=== PATIENT | female | born 1960 ===

== ENCOUNTER 2020-08-27 09:21 | Outpatient (REF) | payer BC, SELFPAY ==
[2020-08-27 11:41] LABS: Anion Gap 14 (12-20); Blood Urea Nitrogen 12 mg/dL (9-16); Calcium 9.1 mg/dL (8.4-10.2); Carbon Dioxide 24 mmol/L (22-29); Chloride 105 mmol/L (96-108); Cholesterol 201 mg/dL; Estimated Glomerular Filt Rate > 60; Glucose Fasting 93 mg/dL (60-99); HDL Cholesterol 40 mg/dL; LDL Cholesterol Calculated 120 mg/dl; Potassium 4.2 mmol/L (3.3-5.1); Sodium 139 mmol/L (135-145); Triglycerides 207 mg/dL
[2020-08-27 12:08] LABS: Free T4 (Free Thyroxine) 1.01 ng/dL (0.71-1.85); Thyroid Stimulating Hormone 5.99 uIU/mL (0.32-4.0); Vitamin D 25-OH Total 25.1 ng/mL (>30)
== END 2020-08-27 09:22 | disposition home or self-care (01) ==
LOC: HO.HMGCLDS 09:21
PROVIDERS: PCP Internal Medicine; Visit Provider Internal Medicine
DX: I10 Essential (primary) hypertension (principal); E03.9 Hypothyroidism, unspecified; J45.20 Mild intermittent asthma, uncomplicated; M17.10 Unilateral primary osteoarthritis, unspecified knee; J30.9 Allergic rhinitis, unspecified
CPT/HCPCS: 36415; 80048; 80061; 82306; 84439; 84443

== ENCOUNTER 2020-12-17 09:33 | Outpatient (REF) | payer BC, SELFPAY ==
[2020-12-17 12:10] LABS: Vitamin D 25-OH Total 53.1 ng/mL (>30)
== END 2020-12-17 09:34 | disposition home or self-care (01) ==
LOC: HO.HMGCLDS 09:33
PROVIDERS: PCP Internal Medicine; Visit Provider Internal Medicine
DX: Z00.01 Encounter for general adult medical examination with abnormal findings (principal); E55.9 Vitamin D deficiency, unspecified; Z78.0 Asymptomatic menopausal state
CPT/HCPCS: 36415; 82306

== ENCOUNTER 2021-05-09 09:50 | Outpatient (REF) | payer BC, SELFPAY ==
[2021-05-09 12:16] LABS: Thyroid Stimulating Hormone 6.15 uIU/mL (0.32-4.0)
== END 2021-05-09 09:51 | disposition home or self-care (01) ==
LOC: HO.HMGCLDS 09:50
PROVIDERS: PCP Internal Medicine; Visit Provider Internal Medicine
DX: E03.9 Hypothyroidism, unspecified (principal); Z78.0 Asymptomatic menopausal state
CPT/HCPCS: 36415; 82306; 84439; 84443

== ENCOUNTER 2021-09-23 10:48 | Outpatient (REF) | payer BC, SELFPAY ==
[2021-09-23 14:24] LABS: Free T4 (Free Thyroxine) 0.97 ng/dL (0.71-1.85); Thyroid Stimulating Hormone 3.91 uIU/mL (0.32-4.0); Vitamin D 25-OH Total 61.9 ng/mL (>30)
== END 2021-09-23 10:49 | disposition home or self-care (01) ==
LOC: HO.HMGCLDS 10:48
PROVIDERS: Visit Provider Internal Medicine
DX: E55.9 Vitamin D deficiency, unspecified (principal); E03.9 Hypothyroidism, unspecified; Z78.0 Asymptomatic menopausal state
CPT/HCPCS: 36415; 82306; 84439; 84443

== ENCOUNTER 2021-10-20 13:50 | Outpatient (REF) | payer BC, SELFPAY ==
--- NOTE | ~2021-10-20 | MM_ITS ---
EXAMINATION: MM SCREENING DIGITAL BREAST TOMOSYNTHESIS, BILATERAL CLINICAL INFORMATION: Screening. Asymptomatic. The lifetime risk of breast cancer based on the Tyrer-Cuzick Model is 6%. COMPARISON: Outside mammography 06/03/2019, 05/22/2019 ([facility]). TECHNIQUE: Digital mammography is performed in craniocaudal and mediolateral oblique views along with computer-aided detection (CAD). Digital breast tomosynthesis is performed in implant-displaced craniocaudal and implant-displaced mediolateral oblique views along with computer-aided detection (CAD). Synthesized 2D images are generated from the tomosynthesis. Additional left implant displaced MLO view is provided. FINDINGS: There are scattered areas of fibroglandular density (ACR BI-RADS breast composition Category b). Bilateral implants contours are smooth and similar to outside exam. There are no significant masses, abnormal calcifications, or other abnormalities. No architectural abnormality. The axilla consistent contours are unremarkable. No significant changes. MM/MM tomosynthesis screen imp BI IMPRESSION: No mammographic evidence of malignancy. ASSESSMENT: BI-RADS 1: Negative RECOMMENDATION: Routine annual mammography screening. This patient's information was entered into a reminder system with a target due date for their next mammogram.
== END 2021-10-20 13:51 | disposition home or self-care (01) ==
LOC: HO.MAMMO 13:50
PROVIDERS: Visit Provider Internal Medicine
DX: Z12.31 Encounter for screening mammogram for malignant neoplasm of breast (principal)
CPT/HCPCS: 77063; 77067

== ENCOUNTER 2022-01-05 08:43 | Outpatient (REF) | payer BC, SELFPAY ==
[2022-01-05 12:26] LABS: Alanine Aminotransferase 18 U/L (0-31); Anion Gap 12 (12-20); Aspartate Amino Transferase 21 U/L (5-31); Blood Urea Nitrogen 17 mg/dL (9-16); Calcium 9.1 mg/dL (8.4-10.2); Carbon Dioxide 21 mmol/L (22-29); Chloride 110 mmol/L (96-108); Cholesterol 202 mg/dL; Estimated Glomerular Filt Rate > 60; Glucose Fasting 109 mg/dL (60-99); HDL Cholesterol 42 mg/dL; LDL Cholesterol Calculated 126 mg/dl; Potassium 4.5 mmol/L (3.3-5.1); Sodium 138 mmol/L (135-145); Triglycerides 173 mg/dL
[2022-01-05 12:28] LABS: Free T4 (Free Thyroxine) 1.05 ng/dL (0.71-1.85); Thyroid Stimulating Hormone 3.52 uIU/mL (0.32-4.0)
== END 2022-01-05 08:44 | disposition home or self-care (01) ==
LOC: HO.HMGCLDS 08:43
PROVIDERS: Visit Provider Internal Medicine
DX: Z00.01 Encounter for general adult medical examination with abnormal findings (principal); E03.9 Hypothyroidism, unspecified; E66.9 Obesity, unspecified; Z78.0 Asymptomatic menopausal state
CPT/HCPCS: 36415; 80048; 80061; 84439; 84443; 84450; 84460

== ENCOUNTER 2022-03-27 14:52 | Outpatient (REF) | payer BC, SELFPAY ==
--- NOTE | ~2022-03-27 | XR_ITS ---
EXAMINATION: XR CHEST CLINICAL INFORMATION: S20.219A - Contusion of unspecified front wall of thorax, initial encounter COMPARISON: None TECHNIQUE: 2 views of the chest were obtained. FINDINGS: The lungs are clear. There is no airspace consolidation, pleural reaction, pneumothorax, or effusion. The costophrenic sulci are clear. The heart is normal in size. The hilar and mediastinal contours are normal. No visible acute bony abnormality. XR/XR chest 2V IMPRESSION: Unremarkable examination.
== END 2022-03-27 14:53 | disposition home or self-care (01) ==
LOC: HO.HMGCX 14:52
PROVIDERS: PCP Internal Medicine; Visit Provider Internal Medicine
DX: S20.219A Contusion of unspecified front wall of thorax, initial encounter (principal)
CPT/HCPCS: 71046

== ENCOUNTER 2022-05-29 14:49 | Emergency (ER) | payer OTHER, SELFPAY ==
[2022-05-29] MEDS: Albuterol Sulfate 2.5 MG, Albuterol Sulfate (0.083%) 2.5 MG 5 MG INHALE (14:56)
[2022-05-29 14:57] VITALS: PULSE 89; RESP 22; O2SAT 97
[2022-05-29 15:06] VITALS: BP 164/87; PULSE 82; RESP 18; TEMP 37.1; O2SAT 81; BMI 32.2
[2022-05-29] MEDS: LORazepam 1 MG TABLET 2 MG PO (15:08)
--- NOTE | 2022-05-29 15:20 | ED_ITS ---
HPI - General Adult General Chief complaint: General Medical Stated complaint: stuck in elevator Time Seen by Provider: 05/29/22 14:50 Source: patient Mode of arrival: wheelchair Limitations: no limitations History of Present Illness HPI narrative: 61 yo female with history of asthma here with complaints of diff breathing/anxiety after being stuck in an elevator. No cough, fever, chest pain. Related Data Allergies Allergy/AdvReac Type Severity Reaction Status Date / Time Unable to Assess Allergy Verified 05/29/22 14:50 Review of Systems Review of Systems: Yes all other systems are reviewed and are negative Constitutional: Constitutional: Reports no additional constitutional complaints, Denies body ache(s), Denies chills, Denies fever(s), Denies headache(s) and Denies weakness Eyes: Eyes: Reports no additional eye complaints and Denies change in vision ENT: Reports system reviewed and no additional complaints, except as doc umented, Denies dizziness, Denies headache(s), Denies nasal congestion, Denies nasal discharge and Denies neck pain Cardiovascular: Cardiovascular: Reports no additional cardiovascular complaints, Denies chest pain, Denies leg edema and Reports dyspnea Respiratory: Respiratory: Reports no additional respiratory complaints, Denies cough and Reports dyspnea Gastrointestinal: Gastrointestinal: Reports no additional gastrointestinal complaints, Denies abdominal pain, Denies diarrhea, Denies nausea and Denies vomiting Genitourinary: Genitourinary: Reports no additional female genitourinary complaints and Denies urinary incontinence Musculoskeletal: Musculoskeletal: Reports no additional musculoskeletal complaints, Denies back pain, Denies arthralgias, Denies joint swelling, Denies neck pain, Denies numbness and Denies tingling Integumentary/Breasts: Skin/Breast: Reports system reviewed and no additional complaints, except as docu and Denies rash Neurologic: Reports system reviewed and no additional complaints, except as documented, Denies dizziness, Denies headache(s), Denies numbness, Denies tingling and Denies weakness Psychiatric: Psychiatric: Reports anxiety PMFSH Past Medical History Attestation statement: The following information was validated with the patient. Source: old records reviewed and nursing notes reviewed Social History Social History Advance Directives: No Advance Directives Information Provided: No Physical Exam ED Vital Signs: Vital Signs - 24 hr 05/29/22 14:57 05/29/22 15:06 Temperature 98.8 F Pulse Rate 89 82 Respiratory Rate 22 H 18 Blood Pressure 164/87 H Pulse Oximetry 81 L Oxygen Delivery Method Room Air BMI result Body Mass Index 32.2 Const General: alert and anxious Orientation/consciousness: patient oriented x3 Limitations: no limitations HENMT Head: Yes normal to inspection Ears: hearing grossly normal bilaterally Eyes General: appearance normal, both eyes and all related structures Pupils: Equal, round and reactive pupils present Neck Neck: Yes normal visual inspection, Yes full ROM, Yes no lymphadenopathy and Yes no meningeal signs Chest Chest palpation & inspection: normal inspection of the chest Resp Other: mild tachypnea Auscultation: clear to auscultation bilaterally Cardio Rate: regular rate Rhythm: regular rhythm Peripheral pulses: Peripheral pulses 2+ throughout GI Inspection: Yes normal to inspection Palpation (GI): Soft to palpation and nontender General: Yes no CVA tenderness Back/Spine/Pelvis Back: no CVA tenderness Thoracic/Lumbar Spine: thoracic and lumbar spine normal to inspection Skin General skin exam: no rashes or lesions noted Neuro General: patient oriented x3, moves all extremities and no meningeal signs Cranial nerves: Yes Equal, round and reactive pupils present Cognition (Neuro): normal cognition Gait exam (Neuro): Normal gait present Extrem General: Yes normal to inspection, Yes no pedal edema and Yes no calf tenderness Course Course Course Narrative: 1615-patient feels much improved. Likely panic attack. Patient will be discharged home. Reviewed worrisome signs and symptoms of when to return to the emergency room. Comfortable plan for discharge home. Medications Administered Discontinued Medications Generic Name Dose Route Start Last Admin Trade Name Isa PRN Reason Stop Dose Admin Albuterol Sulfate 2.5 mg/ 5 mg 05/29/22 14:50 05/29/22 14:56 Albuterol Sulfate 2.5 mg INHALE 05/29/22 14:51 5 mg ONCE ONE Administration Lorazepam 2 mg 05/29/22 14:54 05/29/22 15:08 Lorazepam 1 Mg Tablet PO 05/29/22 14:55 2 mg ONCE ONE Administration Medical Decision Making MDM Narrative Medical decision making narrative: 61 yo female here with difficulty breathing describes shortness of breath with anxiety after being 2nd elevator. On arrival vitals are stable. Lungs are clear. Patient has mild tachypnea. She is quite anxious. Will give albuterol nebulizer, p.o. Ativan and reassess Medical Records Medical records reviewed: Yes I reviewed the patient's medical records. Lab Data Lab results reviewed: Yes I reviewed the patient's lab results. Discharge Plan Discharge Clinical Impression: Panic attack Patient Disposition: Home, Self-Care Instructions: Panic Attack (ED) Referrals: Trung Woods MD [Primary Care Provider] - 5 days Interventions: ED Discharge Assessment Last Done: 05/29/22 16:38 Discharge Date/Time: 05/29/22 16:38
== END 2022-05-29 16:38 | disposition home or self-care (01) ==
PROVIDERS: Emergency Provider Emergency Medicine; PCP Internal Medicine
DX: F41.0 Panic disorder [episodic paroxysmal anxiety] (principal)
CPT/HCPCS: 94640; 99283; 99284

== ENCOUNTER 2022-06-29 13:32 | Outpatient (REF) | payer BC, SELFPAY ==
--- NOTE | ~2022-06-29 | XR_ITS ---
EXAMINATION: XR FOOT, LEFT CLINICAL INFORMATION: Left foot pain. COMPARISON: None TECHNIQUE: AP, lateral, and oblique views of the left foot. FINDINGS: There is acute, minimally displaced oblique fracture of the diaphysis of the proximal phalanx of the fourth digit. The remainder the digits are intact. The tarsal bones are normally aligned. The soft tissues are unremarkable. XR/XR foot LT min 3V IMPRESSION: Acute, minimally displaced fracture of the proximal phalanx of the fourth digit with mild soft tissue swelling.
== END 2022-06-29 13:33 | disposition home or self-care (01) ==
LOC: HO.HMGCX 13:32
PROVIDERS: PCP Internal Medicine; Visit Provider Physician Assistant
DX: M79.675 Pain in left toe(s) (principal)
CPT/HCPCS: 73630

== ENCOUNTER 2022-07-17 16:20 | Outpatient (REF) | payer OTHER, BC, SELFPAY ==
--- NOTE | ~2022-07-17 | XR_ITS ---
EXAMINATION: XR FOOT, LEFT CLINICAL INFORMATION: Pain. COMPARISON: None TECHNIQUE: AP, lateral, and oblique views of the left foot. FINDINGS: The bones and soft tissues are normal. No fracture. Alignment is anatomic. Joint spaces are maintained. XR/XR foot LT min 3V IMPRESSION: Unremarkable left foot exam.
== END 2022-07-17 16:21 | disposition home or self-care (01) ==
LOC: HO.HOSX 16:20
PROVIDERS: Visit Provider Physician Assistant
DX: S92.302A Fracture of unspecified metatarsal bone(s), left foot, initial encounter for closed fracture (principal)
CPT/HCPCS: 73630

== ENCOUNTER 2022-09-29 10:43 | Outpatient (REF) | payer OTHER, SELFPAY ==
[2022-09-29 16:27] LABS: Alanine Aminotransferase 18 U/L (0-31); Anion Gap 13 (12-20); Aspartate Amino Transferase 22 U/L (5-31); Blood Urea Nitrogen 13 mg/dL (9-16); Calcium 8.7 mg/dL (8.4-10.2); Carbon Dioxide 23 mmol/L (22-29); Chloride 108 mmol/L (96-108); Cholesterol 199 mg/dL; Estimated Glomerular Filt Rate > 60; Glucose Fasting 92 mg/dL (60-99); HDL Cholesterol 36 mg/dL; LDL Cholesterol Calculated 120 mg/dl; Potassium 4.2 mmol/L (3.3-5.1); Sodium 140 mmol/L (135-145); Triglycerides 216 mg/dL
[2022-09-29 16:42] LABS: Free T4 (Free Thyroxine) 1.04 ng/dL (0.71-1.85); Thyroid Stimulating Hormone 2.88 uIU/mL (0.32-4.0)
[2022-09-29 17:24] LABS: Vitamin D 25-OH Total 33.7 ng/mL (>30)
== END 2022-09-29 10:44 | disposition home or self-care (01) ==
LOC: HO.HMGCLDS 10:43
PROVIDERS: PCP Internal Medicine; Visit Provider Internal Medicine
DX: Z00.01 Encounter for general adult medical examination with abnormal findings (principal); E03.9 Hypothyroidism, unspecified; E55.9 Vitamin D deficiency, unspecified; E66.9 Obesity, unspecified; Z78.0 Asymptomatic menopausal state
CPT/HCPCS: 36415; 80048; 80061; 82306; 84439; 84443; 84450; 84460

== ENCOUNTER → 2022-10-05 09:19 | Outpatient (BNVA) | payer OTHER, SELFPAY | PROVIDERS: PCP Internal Medicine; Referring Provider Internal Medicine; Visit Provider Surgery | DX: Z13.89 Encounter for screening for other disorder (principal) ==

== ENCOUNTER 2022-10-13 06:58 | Day surgery (SDC) | payer OTHER, SELFPAY ==
[2022-10-13] VITALS (7 sets, daily range): BP systolic 96–129; BP diastolic 56–82; PULSE 59–74; RESP 16–20; TEMP 36.5–36.7; O2SAT 94–96; BMI 31.1
--- NOTE | 2022-10-13 05:59 | MHC.SHP ---
Pre-Procedural Eval Section A Date of Service: 10/13/22 The patient is an INPATIENT: No Changes since office visit: No Cold of Flu in the past 2 weeks, No New Medical Problems, No Changes in Medication and No Patient answered all questions Section B Chief Complaint: Benign lipomatous neoplasm, unspecified Allergies: Allergies Allergy/AdvReac Type Severity Reaction Status Date / Time acetaminophen [From Percocet] Allergy Rash Verified 10/05/22 09:27 meperidine [From Demerol] Allergy Rash Verified 10/05/22 09:27 oxycodone [From Percocet] Allergy Rash Verified 10/05/22 09:27 Penicillins Allergy Anaphylaxis Verified 10/05/22 09:27 ibuprofen AdvReac face Verified 10/05/22 09:27 swollen Plan I have reviewed the history and physical and performed a pertinent physical examination on my patient. No changes have occurred unless specified. Time Spent With Patient Time: Total time managing care of this patient today ____ minutes.
--- NOTE | 2022-10-13 08:37 | HO.ANESPROP2 ---
[facility] Active Problems Active Problems: All Active Problems (Updated 07/17/22 @ 10:28 by Jim Varner) Lipoma (Acute) Fracture of metatarsal of left foot, closed (Acute) Contusion, chest wall (Acute) COVID-19 vaccine series declined (Acute) Tear of medial meniscus of left knee (Acute) Encounter for general adult medical examination with abnormal findings (Acute) Menopause (Acute) Vitamin D deficiency (Acute) Obesity (BMI 30.0-34.9) (Acute) Normal colonoscopy (Acute) Allergic rhinitis (Acute) Mild intermittent allergic asthma without complication (Acute) Osteoarthritis, knee (Acute) Acquired hypothyroidism (Acute) Past Medical History Medical History Acquired hypothyroidism Allergic rhinitis COVID-19 vaccine series declined Encounter for general adult medical examination with abnormal findings Menopause Mild intermittent allergic asthma without complication Normal colonoscopy Obesity (BMI 30.0-34.9) Osteoarthritis, knee Tear of medial meniscus of left knee Vitamin D deficiency Family History Family History Father Diabetes Hypertension Mother Diabetes Hypertension Mental health disorder Brother Diabetes Brother Diabetes Brother Diabetes Sister Diabetes Family history of problems with anesthesia: No Surgical History Surgical History H/O abdominoplasty H/O bilateral breast implants History of surgical removal of meniscus of knee History of Problems with Anesthesia: No Social History Social History Housing: House Alcohol intake: never Patient Tobacco Use Status: Never used Tobacco e-Cigarette/Vaping Use: Never Used Use of substances other than those prescribed or required for medical reasons: No Are you DNR?: No Advance Directives: No Advance Directives Information Provided: Yes service: No Current occupational status: unemployed Cognitive needs: No Hearing needs: No Vision needs: Yes Meds Allergies Allergy/AdvReac Type Severity Reaction Status Date / Time acetaminophen [From Percocet] Allergy Rash Verified 10/05/22 09:27 meperidine [From Demerol] Allergy Rash Verified 10/05/22 09:27 oxycodone [From Percocet] Allergy Rash Verified 10/05/22 09:27 Penicillins Allergy Anaphylaxis Verified 10/05/22 09:27 ibuprofen AdvReac face Verified 10/05/22 09:27 swollen Home Medications Medication Instructions Recorded Confirmed Last Taken Type cholecalciferol (vitamin D3) 25 25 mcg PO DAILY 03/27/22 Unknown History mcg (1,000 unit) capsule Exam Exam Date and Time: October 13, 2022 0837 Height,Weight and Vital Signs: Height 5 ft 1 in Weight 74.843 kg Last Vital Signs Temp 98.0 F 10/13/22 07:16 Pulse 62 10/13/22 07:16 Resp 16 10/13/22 07:16 BP 129/82 10/13/22 07:16 Pulse Ox 96 10/13/22 07:16 O2 Del Method Room Air 10/13/22 07:16 Airway Mallampati Class: II TM Dist: >3cm Neck ROM: Full Assessment and Plan Assessment Anesthesia Assessment: Anesthesia Plan Discussed and Chart Reviewed Final Anesthetic Review Family History of Problems with Anesthesia: No History of Problems with Anesthesia: No NPO: Yes ASA Class: II Final Preanesthetic Review: No Changes in Pt Med Stat, Meds/Allgs Chart Reviewed, Consent Obtained/Reviewed and Anes Risks/Benef Reviewed Patient Risk: Low Procedure Risk: Low Anesthetic Plan Anesthetic Plan: GA Disposition: Standard PACU
--- NOTE | 2022-10-13 09:11 | W.PM.OPN ---
Operative Note Operative Note Date of Service: 10/13/22 Narrative: Preoperative diagnosis: [] large left posterior neck lipoma Postop diagnosis: [] same Procedure [] excision left posterior neck lipoma Surgeon: Axel Sultana Sales Recruiting Coordinator: [] Zia wu Type of Anesthesia: [] MAC Indication for surgery: [] symptomatic enlarging left posterior neck lipoma Findings: [] final specimen measured approximately 7 x 5 cm consistent with a large lipoma The patient was brought to the operating room, placed on the operating table in the supine position, and after an adequate level of MAC anesthesia was induced, patient was placed in right lateral decubitus position. Left posterior neck was prepped and draped in usual sterile fashion. Using a transverse incision over the mass in question, this carried down through skin, subcutaneous tissue, were large lipoma was identified and circumferentially dissected out with final dimensions as described above. Specimen was sent to pathology. Wound was irrigated, secured hemostasis, and closed using interrupted inverted deep dermal 3-0 Vicryl sutures followed by running subcuticular 4-0 Vicryl suture. Steri-Strips and sterile dressings were applied. Sponge, needle, and instrument counts were reported to be correct. Patient tolerated the procedure well and emerged anesthesia stable condition. EBL minimal
== END 2022-10-13 10:15 | disposition home or self-care (01) ==
PROVIDERS: PCP Internal Medicine; Visit Provider Surgery
PROC: (CPT 21552; principal; 2022-10-13 08:40)
DX: D17.0 Benign lipomatous neoplasm of skin and subcutaneous tissue of head, face and neck (principal); J45.20 Mild intermittent asthma, uncomplicated; E03.9 Hypothyroidism, unspecified; E55.9 Vitamin D deficiency, unspecified; Z79.899 Other long term (current) drug therapy; Z88.0 Allergy status to penicillin; Z88.8 Allergy status to other drugs, medicaments and biological substances
CPT/HCPCS: 21552; 88304; J1100; J2250; J2405; J3010

== ENCOUNTER → 2022-10-20 10:13 | Outpatient (BNVA) | payer OTHER, SELFPAY | PROVIDERS: PCP Internal Medicine; Visit Provider Surgery | DX: Z13.89 Encounter for screening for other disorder (principal) ==

== ENCOUNTER 2022-10-30 13:52 | Outpatient (REF) | payer OTHER, SELFPAY ==
--- NOTE | ~2022-10-30 | MM_ITS ---
EXAMINATION: MM SCREENING DIGITAL BREAST TOMOSYNTHESIS, BILATERAL CLINICAL INFORMATION: Screening. Asymptomatic. Bilateral breast implants. COMPARISON: Mammography: October 20, 2021 and studies dating back to May 22, 2019 TECHNIQUE: Digital mammography is performed in craniocaudal and mediolateral oblique views along with computer-aided detection (CAD). Digital breast tomosynthesis is performed in implant-displaced craniocaudal and implant-displaced mediolateral oblique views along with computer-aided detection (CAD). Synthesized 2D images are generated from the tomosynthesis. FINDINGS: There are scattered areas of fibroglandular density (ACR BI-RADS breast composition Category b). There are no significant masses, abnormal calcifications, or other abnormalities. Implant contours unremarkable. MM/MM tomosynthesis screen imp BI IMPRESSION: There are no significant changes from prior study. ASSESSMENT: BI-RADS 1: Negative RECOMMENDATION: Routine annual mammography screening. This patient's information was entered into a reminder system with a target due date for their next mammogram.
== END 2022-10-30 13:53 | disposition home or self-care (01) ==
LOC: HO.MAMMO 13:52
PROVIDERS: PCP Internal Medicine; Visit Provider Obstetrics & Gynecology Gynecology
DX: Z12.31 Encounter for screening mammogram for malignant neoplasm of breast (principal)
CPT/HCPCS: 77063; 77067

== ENCOUNTER → 2022-11-07 15:05 | Outpatient (BNVA) | payer OTHER, SELFPAY | PROVIDERS: PCP Internal Medicine; Referring Provider Internal Medicine; Visit Provider Nurse Practitioner Family | DX: Z13.89 Encounter for screening for other disorder (principal) ==

== ENCOUNTER 2023-11-16 11:23 | Outpatient (REF) | payer OTHER, SELFPAY ==
[2023-11-16 14:18] LABS: Alanine Aminotransferase 17 U/L (0-31); Anion Gap 13 (12-20); Aspartate Amino Transferase 18 U/L (5-31); Blood Urea Nitrogen 9 mg/dL (9-16); Calcium 9.2 mg/dL (8.4-10.2); Carbon Dioxide 22 mmol/L (22-29); Chloride 109 mmol/L (96-108); Cholesterol 199 mg/dL (<200); Estimated Glomerular Filt Rate > 60; Free T4 (Free Thyroxine) 1.06 ng/dL (0.71-1.85); Glucose Fasting 88 mg/dL (60-99); HDL Cholesterol 37 mg/dL (>40); LDL Cholesterol Calculated 113 mg/dL (<100); Potassium 3.9 mmol/L (3.3-5.1); Sodium 140 mmol/L (135-145); Thyroid Stimulating Hormone 3.13 uIU/mL (0.32-4.0); Triglycerides 245 mg/dL (<150); Vitamin D 25-OH Total 29.3 ng/mL (>30)
== END 2023-11-16 11:24 | disposition home or self-care (01) ==
LOC: HO.HMGCLDS 11:23
PROVIDERS: PCP Internal Medicine; Visit Provider Internal Medicine
DX: E55.9 Vitamin D deficiency, unspecified (principal); Z78.0 Asymptomatic menopausal state; E66.9 Obesity, unspecified; E03.9 Hypothyroidism, unspecified
CPT/HCPCS: 36415; 80048; 80061; 82306; 84439; 84443; 84450; 84460

== ENCOUNTER 2023-11-21 13:11 | Outpatient (AMB) | payer OTHER, SELFPAY ==
--- NOTE | 2023-11-21 13:19 | MHC.PC.OV ---
Vital Signs 11/21/23 13:25 11/21/23 14:23 Height 5 ft Weight 169 lb BMI 33.0 BP 142/90 H 135/90 H Blood Pressure Location Lt brachial Lt brachial Position Sitting Sitting Pulse 63 Pulse Source Pulse Oximeter Pulse Oximetry (%) 95 Oxygen Delivery Method Room Air Intake Visit Reasons: Annual PE -OK per Dr. Otto Intake Note: Pt is here today for her PE: last mammogram 10/30/22, papsmear 06/16/20 Allergies acetaminophen [From Percocet] Allergy (Verified 12/01/24 17:27) Rash meperidine [From Demerol] Allergy (Verified 12/01/24 17:27) Rash oxycodone [From Percocet] Allergy (Verified 12/01/24 17:27) Rash Penicillins Allergy (Verified 12/01/24 17:27) Anaphylaxis ibuprofen Adverse Reaction (Verified 12/01/24 17:27) face swollen Medication List - Last Reconciled 11/21/23 by Luz Torres MD albuterol sulfate 90 mcg/actuation 2 inhalations inhalation Q6H PRN cholecalciferol (vitamin D3) 25 mcg PO DAILY fluticasone propionate 50 mcg/actuation 1 spray intranasal DAILY levothyroxine 50 mcg PO DAILY Tobacco use date assessed: 11/21/23 Dental Screening Dental Screen Date: 11/21/23 Did you have a dental visit in the last 12 months?: Yes Did you have a dental problem in the last 6 months where you did not have access to dental care?: Yes Was dental information given to patient?: Patient has dentist HPI Annual PE -OK per Dr. Otto HPI Details 64 year-old lady with history of hypothyroidism, dyslipidemia, seasonal allergic rhinitis and impaired fasting glucose, here today for physical exam.. She had a colonoscopy done in [address] Dejesus , with removal of a tubular adenoma polyp, repeat colonoscopy due again in 2026 . Last cervical cancer screening was done in [address] [facility] with [address] Acosta, with negative findings, due for recheck. She is up-to-date with her screening mammogram done 02/01/2024 with benign findings. She has been feeling well, with no complaints at present time. Compliant with taking medications. FORMERLY [facility], [facility] Medical History Postmenopausal syndrome Impaired fasting glucose Dyslipidemia Tubular adenoma of colon COVID-19 vaccine series declined Tear of medial meniscus of left knee Encounter for general adult medical examination with abnormal findings Menopause Vitamin D deficiency Obesity (BMI 30.0-34.9) Allergic rhinitis Mild intermittent allergic asthma without complication Osteoarthritis, knee Acquired hypothyroidism Surgical History Hx of colonoscopy History of surgical removal of meniscus of knee H/O abdominoplasty H/O bilateral breast implants Family History Father Diabetes Hypertension Mother Diabetes Hypertension Mental health disorder Brother Diabetes Brother Diabetes Brother Diabetes Sister Diabetes Social History Housing: House Alcohol intake: never Patient Tobacco Use Status: Never used Tobacco e-Cigarette/Vaping Use: Never Used service: No Current occupational status: unemployed Cognitive needs: No Hearing needs: No Vision needs: Yes Questionnaire PHQ-9 Over the last 2 weeks, how often have you been bothered by any of the following problems? 1. Little interest or pleasure in doing things: not at all 2. Feeling down, depressed, or hopeless: not at all 3. Trouble falling or staying asleep, or sleeping too much: not at all 4. Feeling tired or having little energy: not at all 5. Poor appetite or overeating: not at all 6. Feeling bad about yourself - or that you are a failure or have let yourself or your family down: not at all 7. Trouble concentrating on things, such as reading the newspaper or watching television: not at all 8. Moving or speaking so slowly that other people could have noticed. Or the opposite - being so fidgety or restless that you have been moving around a lot more than usual: not at all 9. Thoughts that you would be better off or of hurting yourself in some way: not at all Total score: 0 Depression Screening Interpretation: Negative Depression Screening Done: Yes 99443 - PHQ-9 Billing: Yes Source: Developed by Drs. Anish Paz, Rylee Marx, Siddhartha Ramos and colleagues, with an educational ajyleen from [employer]. Thrive Questionnaire Date Thrive assessed: 11/21/23 I am a: Patient What is your living situation today?: I have a steady place to live Within the past 12 months, did the food you bought not last and you didn't have the money to get more?: Never true Within the past 12 months, did you worry whether your food would run out before you got money to buy more?: Never true Do you have trouble paying for medicines?: No Do you have trouble getting transportation to medical appointments?: No Do you have trouble paying your heating and electricity bill?: No Do you have trouble taking care of your child, family member or friend?: No Do you have trouble with day-to-day activities such as bathing, preparing meals, shopping, managing finances, etc.?: No Are you currently unemployed and looking for a job?: No Are you interested in more education?: No THRIVE Score: 0 AUDIT C Alcohol Use Questionnaire (AUDIT-C) 1. How often do you have a drink containing alcohol?: Never Total Score: 0 JULIO-7 AMB Questionnaire JULIO-7 Date JULIO - 7 assessed: 11/21/23 Feeling nervous, anxious, or on edge: 0 = Not at all Not being able to stop or control worryin = Not at all Worrying too much about different things: 0 = Not at all Trouble relaxin = Not at all Being so restless that it is hard to sit still: 0 = Not at all Becoming easily annoyed or irritable: 0 = Not at all Feeling afraid as if something awful might happen: 0 = Not at all Total JULIO-7 score (0-4 normal; 5-9 mild; 10-14 moderate; 15-21 severe): 0 Source: Developed by Drs. Anish Paz, Rylee Marx, Siddhartha Ramos and colleagues, with an educational jayleen from [employer]. JULIO-7 Assessment Billing JULIO-7 Assessment Tool: JULIO-7 Assessment 67748 Review of Systems Const Reports no additional complaints Eyes Details: Sees [facility] ENT Details: Gets regular dental prophylaxis every 6 months Card Denies chest pain, Denies rapid heart rate, Denies irregular heart rhythm, Denies lightheadedness and Denies dyspnea Resp Denies cough and Denies dyspnea GI Reports no additional complaints Details: Followed by Dr. Acosta for her routine Pap and pelvic exam, has an appointment later this year and is due for her screening mammogram, patient will be calling to schedule appointment Musc Reports no additional complaints Skin/Breast Denies breast pain, Denies breast mass and Denies rash Neuro Reports no additional complaints Psych Reports no additional complaints Endo Reports no additional complaints Casey/Lymph Reports no additional complaints Aller/Immun Reports seasonal rhinorrhea Physical exam (Primary Care) Vital Signs: Last Vital Signs Pulse 63 11/21/23 13:25 BP 135/90 H 11/21/23 14:23 Pulse Ox 95 11/21/23 13:25 Oxygen Delivery Method Room Air 11/21/23 13:25 BMI result Body Mass Index 33.0 BMI Assessment/Plan discussion: High BMI High, discussed plan: lifestyle, weight reduction, dietary and physical activity Tobacco/Smoking Status: Tobacco use Status Tobacco use date assessed 11/21/23 11/21/23 13:20 Patient Tobacco Use Status Never used Tobacco 11/21/23 13:20 e-Cigarette/Vaping Use Never Used 11/21/23 13:20 PHQ-9: PHQ-9 Score PHQ-9: Total score 0 09/23/24 16:27 Depression Screening Interpretation: Negative Thrive Assessment: Date of Thrive Assessment Date Thrive assessed 11/21/23 11/21/23 13:29 Const General: healthy appearing, comfortable and no acute distress Nutritional Appearance: obese Orientation/consciousness: patient oriented x3 HENMI General nose exam: Normal external nose present and No nasal discharge present Face and sinus: Yes face symmetric Mouth: Normal oral and palatal mucosa present and moist mucous membranes Eyes General: appearance normal, both eyes and all related structures Neck Neck: Yes full ROM, Yes no lymphadenopathy and Yes supple Thyroid: Thyroid normal Chest Other: Bilateral breast implants breast Resp Auscultation: clear to auscultation bilaterally Cardio Other: S1-S2 Present regular rate and rhythm GI Other: Normal bowel sounds, soft, nontender, no mass palpated General: Yes no CVA tenderness Back/Spine/Pelvis Back: no CVA tenderness and No back tenderness Neuro General: patient oriented x3, gait normal, tone normal, moves all extremities, Normal light touch and pain sensation, no focal motor deficits and CN's II-XI intact bilaterally Extrem Other: Crepitus noted in both knees General: Yes full ROM, Yes no joint enlargement, Yes no pedal edema, Yes no calf tenderness and Yes normal gait Psych Appearance: grossly normal and well kempt Mental Status: mental status grossly normal Speech and movement: Normal speech and movement present Affect: normal affect Attitude: cooperative Results Reviewed Results Reviewed: Name: Dedra Larson Age/Sex: 63/F : 1960 Unit#: [id number] Attend Dr: Luz Torres MD Re11/16/23 Status: DEP REF Location: [facility] Disch: SPEC : [id number] MILO: 11/16/23 STATUS: COMP REQ : [id number] RECD: 11/16/23-[address]: Luz Torres MD COMP: 11/16/23 ENTERED: 11/16/[address]: ORDERED: Met Prof Fast, AST, ALT, Lipid Panel, Vitamin D 25-OH, Free T4, TSH Test Result Flag Reference Sodium 140 135-145 mmol/L Potassium 3.9 3.3-5.1 mmol/L CL 109 H 96-108 mmol/L CO2 22 22-29 mmol/L Gap 13 12-20 BUN 9 9-16 mg/dL Creat 0.71 0.5-1.4 mg/dL EGFR > 60 NOTE: For -Bel[place] individuals, multiply the result by 1.210. Chronic Kidney Disease: Estimated GFR < 60 mL/min/1.73m2 Severe Kidney Disease: Estimated GFR < 15 mL/min/1.73m2 FBS 88 60-99 mg/dL CA 9.2 8.4-10.2 mg/dL AST (GOT) 18 5-31 U/L ALT (GPT) 17 0-31 U/L Triglyceride 245 H <150 mg/dL Desirable Triglyceride: less than 150 mg/dL Borderline High Triglyceride 150-199 mg/dL High Triglyceride: 200-499 mg/dL Very High Triglyceride: greater than or equal to 5OO mg/dL Cholesterol 199 <200 mg/dL Desirable Cholesterol: less than 200 mg/dL Borderline High Cholesterol: 200-239 mg/dL High Cholesterol: greater than 239 mg/dL LDL Calculated 113 H <100 mg/dL Desirable LDL: less than 100 mg/dL Near Optimal/Above Optimal LDL: 110-129 mg/dL Borderline High LDL: 130-159 mg/dL High LDL: 160-189 mg/dL Very High LDL: greater than or equal to 190 mg/dL HDL 37 L >40 mg/dL Desirable HDL: greater than 40 mg/dL Note: This HDL assay may give artificially low results in patients with liver disease. Vit D 25-OH Tot 29.3 L >30 ng/mL Health Based Reference Values* < 20 ng/mL Deficient 20-30 ng/mL Insufficient > 30 ng/mL Sufficient *Jeanne HATCH. N Engl J Med. 2007;357:266-280 Care must be taken in interpreting Vitamin D results from different laboratories and methodologies. Published data demonstrated that results from patients undergoing hemodialysis may show a negative bias when tested with various automated 25-OH vitamin D assays when compared to LC-MS/MS. When testing samples from patients whose predominant form of Vitamin D is Vitamin D2, such as patients receiving Vitamin D2 supplementation, results that are subtherapeutic should be confirmed with another method such as LC-MS/MS. Free T4 1.06 0.71-1.85 ng/dL TSH 3rd Gen. 3.13 0.32-4.0 uIU/mL Note: A sustained TSH level above 2.5 uIU/mL may warrant further investigation. TSH 3rd Generation ([facility]) Name: Dedra Larson Age/Sex: 63/F : 1960 Unit#: [id number] Attend Dr: Luz Torres MD Re09/15/24 Status: DEP [facility] Disch: SPEC : [id number] MILO: 09/15/24 STATUS: COMP REQ : [id number] RECD: 09/15/[address]: Luz Torres MD COMP: 09/15/24 ENTERED: 09/15/[address] [facility] DR: ORDERED: Glu Fasting, Lipid Panel, Vitamin D 25-OH, Free T4, TSH Test Result Flag Reference FBS 101 H 60-99 mg/dL A fasting glucose from 100-125 mg/dl is considered impaired (pre-diabetes). Triglyceride 179 H <150 mg/dL Desirable Triglyceride: less than 150 mg/dL Borderline High Triglyceride 150-199 mg/dL High Triglyceride: 200-499 mg/dL Very High Triglyceride: greater than or equal to 5OO mg/dL Cholesterol 175 <200 mg/dL Desirable Cholesterol: less than 200 mg/dL Borderline High Cholesterol: 200-239 mg/dL High Cholesterol: greater than 239 mg/dL LDL Calculated 100 H <100 mg/dL Desirable LDL: less than 100 mg/dL Near Optimal/Above Optimal LDL: 110-129 mg/dL Borderline High LDL: 130-159 mg/dL High LDL: 160-189 mg/dL Very High LDL: greater than or equal to 190 mg/dL HDL 40 L >40 mg/dL Desirable HDL: greater than 40 mg/dL Note: This HDL assay may give artificially low results in patients with liver disease. Vit D 25-OH Tot 49.4 >30 ng/mL Health Based Reference Values* < 20 ng/mL Deficient 20-30 ng/mL Insufficient > 30 ng/mL Sufficient *Jeanne HATCH. N Engl J Med. 2007;357:266-280 Care must be taken in interpreting Vitamin D results from different laboratories and methodologies. Published data demonstrated that results from patients undergoing hemodialysis may show a negative bias when tested with various automated 25-OH vitamin D assays when compared to LC-MS/MS. When testing samples from patients whose predominant form of Vitamin D is Vitamin D2, such as patients receiving Vitamin D2 supplementation, results that are subtherapeutic should be confirmed with another method such as LC-MS/MS. Free T4 1.17 0.71-1.85 ng/dL TSH 3rd Gen. 4.99 H 0.32-4.0 uIU/mL Note: A sustained TSH level above 2.5 uIU/mL may warrant further investigation. TSH 3rd Generation ([facility]) Coding Level of Care Code Est Pt Prev Care 40-64y(19124) Diagnoses Encounter for general adult medical examination with abnormal findings Z00.01 Vitamin D deficiency E55.9 Obesity (BMI 30.0-34.9) E66.9 Acquired hypothyroidism E03.9 Advanced directives, counseling/discussion Z71.89 Additional Codes JULIO-7 Assessment Billing - JULIO-7 Assessment Tool: JULIO-7 Assessment 96536 ([id number])
[2023-11-21 13:25] VITALS: BP 142/90; PULSE 63; O2SAT 95; BMI 33.0
[2023-11-21 14:23] VITALS: BP 135/90
== END 2023-11-21 14:27 | disposition home or self-care (01) ==
PROVIDERS: PCP Internal Medicine; Visit Provider Internal Medicine
DX: Z00.01 Encounter for general adult medical examination with abnormal findings (principal); E55.9 Vitamin D deficiency, unspecified; E66.9 Obesity, unspecified; E03.9 Hypothyroidism, unspecified; Z71.89 Other specified counseling
CPT/HCPCS: 99499

== ENCOUNTER 2023-11-30 11:27 | Day surgery (SDC) | payer OTHER, SELFPAY ==
--- NOTE | 2023-11-28 14:42 | HO.ANESPROP2 ---
HPI - Anesthesia Eval Consult details Narrative: 63yo F for Colonoscopy PMFSH Active Problems Active Problems: All Active Problems COVID-19 vaccine series declined (Acute) Encounter for general adult medical examination with abnormal findings (Acute) Menopause (Acute) Vitamin D deficiency (Acute) Obesity (BMI 30.0-34.9) (Acute) Normal colonoscopy (Acute) Allergic rhinitis (Acute) Mild intermittent allergic asthma without complication (Acute) Osteoarthritis, knee (Acute) Acquired hypothyroidism (Acute) Past Medical History Medical History (Updated 11/21/23 @ 14:31 by Luz Torres MD) COVID-19 vaccine series declined Tear of medial meniscus of left knee Encounter for general adult medical examination with abnormal findings Menopause Vitamin D deficiency Obesity (BMI 30.0-34.9) Normal colonoscopy Allergic rhinitis Mild intermittent allergic asthma without complication Osteoarthritis, knee Acquired hypothyroidism Family History Family History Father Diabetes Hypertension Mother Diabetes Hypertension Mental health disorder Brother Diabetes Brother Diabetes Brother Diabetes Sister Diabetes Family history of problems with anesthesia: No Surgical History Surgical History History of surgical removal of meniscus of knee H/O abdominoplasty H/O bilateral breast implants History of Problems with Anesthesia: No Social History Social History Housing: House Alcohol intake: never Patient Tobacco Use Status: Never used Tobacco e-Cigarette/Vaping Use: Never Used service: No Current occupational status: unemployed Cognitive needs: No Hearing needs: No Vision needs: Yes Meds Allergies Allergy/AdvReac Type Severity Reaction Status Date / Time acetaminophen [From Percocet] Allergy Rash Verified 11/30/23 12:10 meperidine [From Demerol] Allergy Rash Verified 11/30/23 12:10 oxycodone [From Percocet] Allergy Rash Verified 11/30/23 12:10 Penicillins Allergy Anaphylaxis Verified 11/30/23 12:10 ibuprofen AdvReac face Verified 11/30/23 12:10 swollen Home Medications ?Medication ?Instructions ?Recorded ?Confirmed ?Last Taken ?Type cholecalciferol (vitamin D3) 25 25 mcg PO DAILY 03/27/22 11/30/23 Unknown History mcg (1,000 unit) capsule Assessment and Plan Assessment Anesthesia Assessment: Chart Reviewed Final Anesthetic Review Family History of Problems with Anesthesia: No History of Problems with Anesthesia: No
[2023-11-30 11:52] VITALS: BP 126/79; PULSE 64; RESP 16; TEMP 37.1; O2SAT 96; BMI 32.1
[2023-11-30] MEDS: Lactated Ringers 1,000 ML 100 ML IVCONT (12:08)
--- NOTE | 2023-11-30 12:22 | MHC.SHP ---
Pre-Procedural Eval Section A - 24 Hr Update-Section A only Date of Service: 11/30/23 Section B - Complete if H&P > 30 days Chief Complaint: Encounter for screening for malignant neoplasm of Details of Present Illness: Acquired hypothyroidism Allergic rhinitis COVID-19 vaccine series declined Encounter for general adult medical examination with abnormal findings Menopause Mild intermittent allergic asthma without complication Normal colonoscopy Obesity (BMI 30.0-34.9) Osteoarthritis, knee Tear of medial meniscus of left knee Vitamin D deficiency Surgical History H/O abdominoplasty H/O bilateral breast implants History of surgical removal of meniscus of knee Allergies: Allergies Allergy/AdvReac Type Severity Reaction Status Date / Time acetaminophen [From Percocet] Allergy Rash Verified 11/30/23 12:10 meperidine [From Demerol] Allergy Rash Verified 11/30/23 12:10 oxycodone [From Percocet] Allergy Rash Verified 11/30/23 12:10 Penicillins Allergy Anaphylaxis Verified 11/30/23 12:10 ibuprofen AdvReac face Verified 11/30/23 12:10 swollen Review of Systems Review of Systems Comment: Ten point ROS negative Exam Exam Comment: Gen appear: No acute distress HEENT: no icterus Chest: No overt resp distress Abd: soft, nontender, nondistended Psych: Stable affect, answering questions appropriately Neuro: A/Ox3 noted to move all extremities spontaneously Ext: no peripheral edema Plan Diagnosis/Plan: Unchanged I have reviewed the history and physical and performed a pertinent physical examination on my patient. No changes have occurred unless specified. Time Spent With Patient Time: Total time managing care of this patient today ____ minutes.
--- NOTE | 2023-11-30 12:25 | P.OPN-COLO_ITS ---
Colonoscopy Operative Note Operative Note Date of Service: 11/30/23 Narrative: Procedure: Colonoscopy Indication: Screening Endoscopist: Ann Dejesus MD Anesthesia Provider: Colin Morocho CRNA Anesthesia type: MAC Instrument: Olympus [id number]-[id number] Consent: Indication, risks vs benefits, and alternatives were discussed with the patient who gave written informed consent to proceed. EKG, pulse, pulse oximetry and blood pressure were monitored throughout the procedure. Please see anesthesia flowsheet. Procedure: The patient was brought to the procedure room and placed in the left lateral decubitus position. IV medications were administered by the anesthesia provider in attendance. A digital rectal exam was performed which was normal. A distal attachment cap was affixed to the tip of the colonoscope which was then inserted through the anus and advanced through the colon to the cecum at 75 cm,and terminal ileum. Appendiceal orifice and ileocecal valve were identified. Mucosa was carefully examined under high definition white light as the instrument was slowly withdrawn in a retrograde panoramic fashion. Retroflexion was performed in rectum. The procedure was not difficult. There were no immediate obvious complications. The quality of the prep was BBPS: 2+2+3 = adequate Withdrawal time 9 minutes. Limitations: No limitations. Findings: Mucosa: Normal to cecum and terminal ileum. Protruding lesions: * 1 sessile polyp of size 4 mm in ascending colon. Cold snare polypectomy was performed. The polyp was completely removed and retrieved. * Medium internal hemorrhoids without stigmata of recent bleeding. Excavated lesions: * Mild diverticulosis of sigmoid colon. Impression: 1. Normal colon and terminal ileum mucosa 2. Total of 1 polyp removed 3. Diverticulosis 4. Internal hemorrhoids Recommendations: - Follow path results. - Repeat colonoscopy in 7-10 years depending on the path. - Fiber supplementation
--- NOTE | 2023-11-30 13:12 | P.CONAN_ITS ---
[facility] Active Problems Active Problems: /All Active Problems COVID-19 vaccine series declined (Acute) Encounter for general adult medical examination with abnormal findings (Acute) Menopause (Acute) Vitamin D deficiency (Acute) Obesity (BMI 30.0-34.9) (Acute) Normal colonoscopy (Acute) Allergic rhinitis (Acute) Mild intermittent allergic asthma without complication (Acute) Osteoarthritis, knee (Acute) Acquired hypothyroidism (Acute) Past Medical History Medical History (Updated 11/21/23 @ 14:31 by Luz Torres MD) COVID-19 vaccine series declined Tear of medial meniscus of left knee Encounter for general adult medical examination with abnormal findings Menopause Vitamin D deficiency Obesity (BMI 30.0-34.9) Normal colonoscopy Allergic rhinitis Mild intermittent allergic asthma without complication Osteoarthritis, knee Acquired hypothyroidism Functional capacity: independent ambulation Family History Family History Father Diabetes Hypertension Mother Diabetes Hypertension Mental health disorder Brother Diabetes Brother Diabetes Brother Diabetes Sister Diabetes Family history of problems with anesthesia: No Surgical History Surgical History History of surgical removal of meniscus of knee H/O abdominoplasty H/O bilateral breast implants History of Problems with Anesthesia: No Social History Social History Housing: House Alcohol intake: never Patient Tobacco Use Status: Never used Tobacco e-Cigarette/Vaping Use: Never Used service: No Current occupational status: unemployed Cognitive needs: No Hearing needs: No Vision needs: Yes Meds Allergies Allergy/AdvReac Type Severity Reaction Status Date / Time acetaminophen [From Percocet] Allergy Rash Verified 11/30/23 12:10 meperidine [From Demerol] Allergy Rash Verified 11/30/23 12:10 oxycodone [From Percocet] Allergy Rash Verified 11/30/23 12:10 Penicillins Allergy Anaphylaxis Verified 11/30/23 12:10 ibuprofen AdvReac face Verified 11/30/23 12:10 swollen Active Medications: Current Medications Albuterol Sulfate (Albuterol Sulfate (0.083%) 2.5 Mg/3 Ml Vial.Neb) 2.5 mg INHALE ONCE PRN PRN Reason: Shortness of Breath/Wheezing Lactated Ringer's (Lr) 1,000 mls @ 100 mls/hr IVCONT .Q10H KEVON Last Admin: 11/30/23 12:08 Dose: 100 mls/hr Home Medications ?Medication ?Instructions ?Recorded ?Confirmed ?Last Taken ?Type cholecalciferol (vitamin D3) 25 25 mcg PO DAILY 03/27/22 11/30/23 Unknown History mcg (1,000 unit) capsule Exam Height,Weight and Vital Signs: Height 5 ft 1 in Weight 77.111 kg Last Vital Signs Temp 98.7 F 11/30/23 11:52 Pulse 64 11/30/23 11:52 Resp 16 11/30/23 11:52 BP 126/79 11/30/23 11:52 Pulse Ox 96 11/30/23 11:52 O2 Del Method Room Air 11/30/23 11:52 Airway Mallampati Class: II TM Dist: >3cm Neck ROM: Full Heart: RRR Lungs: CTA Assessment and Plan Assessment Anesthesia Assessment: Anesthesia Plan Discussed Final Anesthetic Review Family History of Problems with Anesthesia: No History of Problems with Anesthesia: No ASA Class: II Final Preanesthetic Review: Meds/Allgs Chart Reviewed, Consent Obtained/Reviewed and Anes Risks/Benef Reviewed Patient Risk: Low Procedure Risk: Low Anesthetic Plan Anesthetic Plan: MAC: Disposition: Standard PACU
[2023-11-30 13:30] VITALS: BP 96/53; PULSE 69; RESP 12; TEMP 36.1; O2SAT 94
[2023-11-30 13:45] VITALS: BP 109/67; PULSE 66; RESP 16; TEMP 36.1; O2SAT 95
--- NOTE | 2023-11-30 15:29 | HO.POSTANES ---
Post Anesthesia Evaluation Post Anesthesia Evaluation Date of Service: 11/30/23 Vital Signs: Vital Signs Temp Pulse Resp BP Pulse Ox O2 Del Method 11/30/23 13:45 97 F 66 16 109/67 95 Room Air 11/30/23 13:30 97 F 69 12 96/53 L 94 Room Air 11/30/23 11:52 98.7 F 64 16 126/79 96 Room Air Anesthesia: Monitored Mental Status: Awake Pain Control: Satisfactory Nausea/Vomiting: None Hydration: Adequate Anesthesia-Related Issues: No Anes. Related Issues
== END 2023-11-30 13:00 | disposition home or self-care (01) ==
PROVIDERS: PCP Internal Medicine; Visit Provider Internal Medicine
PROC: 0DJD8ZZ Inspection of Lower Intestinal Tract, Via Natural or Artificial Opening Endoscopic (ICD-10-PCS; CPT 45378; principal; 2023-11-30 12:40)
DX: Z12.11 Encounter for screening for malignant neoplasm of colon (principal); D12.2 Benign neoplasm of ascending colon; K57.30 Diverticulosis of large intestine without perforation or abscess without bleeding; K64.8 Other hemorrhoids; J45.20 Mild intermittent asthma, uncomplicated; Z79.899 Other long term (current) drug therapy
CPT/HCPCS: 45385; 88305; J2704

== ENCOUNTER → 2023-11-30 11:27 | Outpatient (BNV) | payer OTHER, SELFPAY | PROVIDERS: PCP Internal Medicine; Visit Provider Internal Medicine | DX: Z12.11 Encounter for screening for malignant neoplasm of colon (principal); D12.2 Benign neoplasm of ascending colon; K57.30 Diverticulosis of large intestine without perforation or abscess without bleeding; K64.8 Other hemorrhoids | CPT/HCPCS: 45385 ==

== ENCOUNTER 2023-12-14 12:00 | Outpatient (AMB) | payer OTHER, SELFPAY ==
--- NOTE | 2023-12-14 12:20 | MHC.OFFVIS ---
Vital Signs 12/14/23 12:28 Height 5 ft 1 in Weight 166 lb 3.657 oz BMI 31.4 BP 146/78 H Blood Pressure Location Lt brachial Position Sitting Pulse 68 Pulse Source Pulse Oximeter Pulse Oximetry (%) 97 Oxygen Delivery Method Room Air Intake Visit Reasons: s/p colon Sulaiman Intake Note: Dedra presents in office today for a post op (colo sp) FUV. CC: Pt reports that she is strictly interested in the results of her colo sp. Pt denies any significant sx or complications. Intermediate Project Manager Required: No Allergies acetaminophen [From Percocet] Allergy (Verified 12/14/23 12:27) Rash meperidine [From Demerol] Allergy (Verified 12/14/23 12:27) Rash oxycodone [From Percocet] Allergy (Verified 12/14/23 12:27) Rash Penicillins Allergy (Verified 12/14/23 12:27) Anaphylaxis ibuprofen Adverse Reaction (Verified 12/14/23 12:27) face swollen HPI HPI s/p colon Sulaiman: Details: LAST VISIT 11/07/2022 Screen for colon cancer Patient denies any GI, cardiac or respiratory symptoms.? Denies any issues with anesthesia in the past.? Denies any history of sleep apnea.? No history infectious diseases in the past or present.? Not on any anticoagulation therapy.? No family or personal history of colon cancer or polyps.? Patient denies melena, hematochezia, unintentional weight loss or ribbon like stools.? Discussed at length the pre-procedure,? prep, diet & medications as well as what to expect prior, during and after the procedure.?? Stressed the importance of good bowel prep. ?Recommended the use of Vaseline or Calmoseptine OTC & baby wipes with bowel movements to promote comfort.? ?Patient verbalizes understanding and agrees to plan of care.? She was given the opportunity to ask questions and all questions answered.? We will see her after the procedure.? Plan Medications New bisacodyl (Dulcolax (bisacodyl)) take 2 tabs at noon the day before your colonoscopy 10 mg (2 x 5 mg) PO ONCE 1 day 2 tabs 0RF Z12.11 - Encounter for screening for malignant neoplasm of colon polyethylene glycol 3350 (Miralax) As directed by gastroenterology department at [facility] 238 grams PO ONCE 238 grams 0RF Z12.11 - Encounter for screening for malignant neoplasm of colon COLONOSCOPY Findings: Mucosa: Normal to cecum and terminal ileum. Protruding lesions: 1 sessile polyp of size 4 mm in ascending colon. Cold snare polypectomy was performed. The polyp was completely removed and retrieved. Medium internal hemorrhoids without stigmata of recent bleeding. Excavated lesions: Mild diverticulosis of sigmoid colon. Impression: 1. Normal colon and terminal ileum mucosa 2. Total of 1 polyp removed 3. Diverticulosis 4. Internal hemorrhoids Recommendations: - Follow path results. - Repeat colonoscopy in 7-10 years depending on the path. - Fiber supplementation PATHOLOGY RESULTS Diagnosis Colon, ascending, polypectomy: Tubular adenoma; negative for high-grade dysplasia or carcinoma TODAY'S VISIT Patient is here today for follow-up and to discuss colonoscopy results. Patient denies any ill effects from the prep, anesthesia or procedure itself. Patient reports to be feeling well. Denies any melena, hematochezia. Denies any dyspepsia, dysphagia or odynophagia. One tubular adenoma found in ascending colon. Negative for high-grade dysplasia or carcinoma. Patient will repeat colonoscopy in 7 years, sooner if clinically necessary. No family history CRC. [facility] Medical History (Updated 12/14/23 @ 20:46 by Danette Mckeon, [facility]) Tubular adenoma of colon COVID-19 vaccine series declined Tear of medial meniscus of left knee Encounter for general adult medical examination with abnormal findings Menopause Vitamin D deficiency Obesity (BMI 30.0-34.9) Normal colonoscopy Allergic rhinitis Mild intermittent allergic asthma without complication Osteoarthritis, knee Acquired hypothyroidism Surgical History Hx of colonoscopy History of surgical removal of meniscus of knee H/O abdominoplasty H/O bilateral breast implants Family History Father Diabetes Hypertension Mother Diabetes Hypertension Mental health disorder Brother Diabetes Brother Diabetes Brother Diabetes Sister Diabetes Social History Housing: House Alcohol intake: never Patient Tobacco Use Status: Never used Tobacco e-Cigarette/Vaping Use: Never Used service: No Current occupational status: unemployed Cognitive needs: No Hearing needs: No Vision needs: Yes Review of Systems Const Denies weight gain and Denies weight loss ENT Reports no additional complaints, Denies dysphagia and Denies odynophagia Card Reports no additional complaints Resp Reports no additional complaints GI Denies abdominal pain, Denies belching, Denies melena, Denies bloating, Denies change in bowel habits, Denies dysphagia, Denies excessive flatus, Denies dyspepsia, Denies heartburn, Denies diarrhea, Denies loose stools, Denies nausea, Denies odynophagia and Denies vomiting Musc Reports no additional complaints Neuro Reports no additional complaints Psych Reports no additional complaints Endo Reports no additional complaints Physical Exam Vital Signs: Last Vital Signs Pulse 68 12/14/23 12:28 BP 146/78 H 12/14/23 12:28 Pulse Ox 97 12/14/23 12:28 Oxygen Delivery Method Room Air 12/14/23 12:28 BMI result Body Mass Index 31.4 Const General: healthy appearing and no acute distress Nutritional Appearance: obese Orientation/consciousness: patient oriented x3 Resp Effort & Inspection: normal respiratory effort, able to speak in complete sentences, no tracheal deviation and symmetric chest movement Auscultation: clear to auscultation bilaterally Cardio Rate: regular rate GI Inspection: Yes normal to inspection, No distended and Yes obesity Palpation (GI): Soft to palpation, not firm, nontender and No hepatosplenomegaly present Auscultation: normal bowel sounds General: Yes no CVA tenderness Back/Spine/Pelvis Back: no CVA tenderness Skin General skin exam: elasticity normal, turgor normal and dry skin Neuro General: patient oriented x3 Psych Appearance: grossly normal Mental Status: mental status grossly normal Assessment & Plan Assessment & Plan (1) Tubular adenoma of colon: Code(s): D12.6 - Benign neoplasm of colon, unspecified Category: Medical (2) Status post colonoscopy: Code(s): Z98.890 - Other specified postprocedural states Plan Patient did well with procedure. Next procedure 7 years, sooner if clinically necessary. Tubular adenoma without high-grade dysplasia or carcinoma found. No family history of CRC. Patient is agreeable to this plan and verbalizes understanding of instructions. She was given the opportunity to ask questions and all questions answered. Thank you for allowing me to participate in her care Coding Level of Care Code Est Pt Level 3 (13710) Diagnoses Tubular adenoma of colon D12.6 Status post colonoscopy Z98.890 Time Spent (min) 25 Comment 15 minutes spent with patient and additional 10 minutes spent reviewing her records
[2023-12-14 12:28] VITALS: BP 146/78; PULSE 68; O2SAT 97; BMI 31.4
== END 2023-12-14 13:08 | disposition home or self-care (01) ==
PROVIDERS: PCP Internal Medicine; Visit Provider Nurse Practitioner Family
DX: D12.6 Benign neoplasm of colon, unspecified (principal); Z98.890 Other specified postprocedural states
CPT/HCPCS: 99213

== ENCOUNTER → 2023-12-14 12:00 | Outpatient (BNVA) | payer OTHER, SELFPAY | PROVIDERS: PCP Internal Medicine; Visit Provider Nurse Practitioner Family ==

== ENCOUNTER 2024-02-01 15:44 | Outpatient (REF) | payer OTHER, SELFPAY ==
--- NOTE | ~2024-02-01 | MM_ITS ---
EXAMINATION: MM SCREENING DIGITAL BREAST TOMOSYNTHESIS, BILATERAL WITH BREAST IMPLANTS CLINICAL INFORMATION: Screening. Asymptomatic. COMPARISON: Mammography: This study is compared with prior mammograms dating back to 2019. TECHNIQUE: Digital mammography is performed in craniocaudal and mediolateral oblique views along with computer-aided detection (CAD). Digital breast tomosynthesis is performed in implant-displaced craniocaudal and implant-displaced mediolateral oblique views along with computer-aided detection (CAD). Synthesized 2D images are generated from the tomosynthesis. FINDINGS: There are scattered areas of fibroglandular density (ACR BI-RADS breast composition Category b). There are bilateral, retropectoral, mammographically intact silicone breast implants. There are no significant masses, abnormal calcifications, or other abnormalities. MM/MM tomosynthesis screen imp BI IMPRESSION: There are no significant changes from prior study. ASSESSMENT: BI-RADS BI-RADS 1 - Negative RECOMMENDATION: Routine annual mammography screening. 1 year F/U This patient's information was entered into a reminder system with a target due date for their next mammogram.
== END 2024-02-01 15:45 | disposition home or self-care (01) ==
LOC: HO.MAMMO 15:44
PROVIDERS: PCP Internal Medicine; Visit Provider Internal Medicine
DX: Z12.31 Encounter for screening mammogram for malignant neoplasm of breast (principal)
CPT/HCPCS: 77063; 77067

== ENCOUNTER → 2024-02-01 16:00 | Outpatient (BNV) | payer OTHER, SELFPAY | PROVIDERS: PCP Internal Medicine; Visit Provider Radiology Diagnostic Radiology | DX: Z12.31 Encounter for screening mammogram for malignant neoplasm of breast (principal) | CPT/HCPCS: 77063; 77067 ==

== ENCOUNTER 2024-09-15 08:23 | Outpatient (REF) | payer OTHER, SELFPAY ==
--- OUTSIDE RECORDS SUMMARY | 2024-09-15 08:31 | XMS_ITS | Clinical Summary ---
Author Organization [facility] Address [address] [place] [address] Care Team Providers Care Property Insurance Claims Examiner Name Role Phone Luz Torres MD Primary Care Provider [phone] Allergies Active Allergy Reactions Criticality Noted Date Comments Cortisone Anaphylaxis High 02/10/2021 Meperidine 02/10/2021 Ibuprofen 02/10/2021 Penicillins 02/10/2021 Oxycodone-Acetaminophen 02/10/2021 Medications Medication Sig Dispensed Refills Start Date End Date Status levothyroxine (SYNTHROID) tablet 50 mcg Take 50 mcg by mouth daily. 0 02/02/2021 Active Acetaminophen-Codei ne (TYLENOL/CODEINE #3) 300-30 MG per tablet Take one tab every 6 hours as needed for pain following your left knee surgery 20 tablet 0 04/19/2021 Active Additional Information Patient not taking.Reason: Other, Reported on 08/30/2021 D3-50 1.25 MG (83829 UT) capsule TAKE 1 CAPSULE BY ONCE WEEKLY 0 07/05/2021 Active fluticasone (FLONASE) 50 MCG/ACT nasal spray USE 1 SPRAY IN EACH NOSTRIL EVERY DAY 0 01/05/2022 Active meloxicam (MOBIC) 15 MG tablet TAKE 1 TABLET ORALLY DAILY 0 03/27/2022 Active Active Problems Problem Noted Date Diagnosed Date Arthritis of knee, right 01/19/2022 Traumatic tear of meniscus of left knee 02/11/20 21 Family History Medical History Relation Name Comments Diabetes Brother Hypertension Brother Diabetes Father Hypertension Father Diabetes Mother Hypertension Mother Diabetes Sister Relation Name Status Comments Brother Father Mother Sister Social History Tobacco Use Types Packs/Day Years Used Date Smoking Tobacco: Never Assessed Sex and Gender Information Value Date Recorded Sex Assigned at Not on file Gender Identity Not on file Sexual Orientation Not on file Job Start Date Occupation Industry Not on file Not on file Not on file Last Filed Vital Signs Vital Sign Reading Time Taken Comments Blood Pressure - - Pulse - - Temperature - - Respiratory Rate - - Oxygen Saturation - - Inhaled Oxygen Concentration - - Weight 74.8 kg (165 lb) 02/10/2021 2:23 PM EDT Height 152.4 cm (5') 02/10/2021 2:23 PM EDT Body Mass Index 32.22 02/10/2021 2:23 PM EDT Plan of Treatment Health Maintenance Due Date Last Done Comments Hepatitis C Screening 1960 COVID-19 Vaccine (#1) 05/03/1963 Depression Screening 1974 BMI Counseling 1980 Preventative Health Evaluation 1980 DTap / Tdap / Td (1 - Tdap) 1981 Cervical Cancer Screening (P ap Smear) 11/02/1983 Colon Cancer Screening (Colonoscopy) 11/02/2007 Breast Cancer Screening (Mammogram) 2012 Shingrix-Zoster Vaccine (1 of 2) 2012 Influenza Vaccine (#1) 2024 RSV Adult > 60+ Yrs or Pregn ant (1 - 1-dose 75+ series) 2037 Hepatitis B Vaccines Aged Out No long er eligible based on patient's age to complete this topic Pneumococcal Vaccine Aged Out No long er eligible based on patient's age to complete this topic RSV Ped < 20 months Aged Out No longe r eligible based on patient's age to complete this topic Care Teams Property Insurance Claims Examiner Relationship Specialty Start Date End Date Luz Torres MD [address] [place] [address] MARY CHOW [id number] PCP - General Internal Medicine 01/25/21
[2024-09-15 10:51] LABS: Cholesterol 175 mg/dL (<200); Glucose Fasting 101 mg/dL (60-99); HDL Cholesterol 40 mg/dL (>40); LDL Cholesterol Calculated 100 mg/dL (<100); Triglycerides 179 mg/dL (<150)
[2024-09-15 11:08] LABS: Free T4 (Free Thyroxine) 1.17 ng/dL (0.71-1.85); Thyroid Stimulating Hormone 4.99 uIU/mL (0.32-4.0); Vitamin D 25-OH Total 49.4 ng/mL (>30)
== END 2024-09-15 08:24 | disposition home or self-care (01) ==
LOC: HO.HMGCLDS 08:23
PROVIDERS: PCP Internal Medicine; Visit Provider Internal Medicine
DX: E55.9 Vitamin D deficiency, unspecified (principal); E66.9 Obesity, unspecified; E03.9 Hypothyroidism, unspecified; Z78.0 Asymptomatic menopausal state; Z13.1 Encounter for screening for diabetes mellitus
CPT/HCPCS: 36415; 80061; 82306; 82947; 84439; 84443

== ENCOUNTER 2024-09-18 08:08 | Outpatient (AMB) | payer OTHER, SELFPAY ==
[2024-09-18 08:10] VITALS: BP 148/80; PULSE 53; RESP 16; TEMP 36.5; O2SAT 98; BMI 31.2
--- NOTE | 2024-09-18 08:10 | A.OFFPC_ITS ---
Vital Signs 09/18/24 08:10 09/18/24 08:29 Height 5 ft 1 in Weight 165 lb BMI 31.2 BP 148/80 H 130/90 H Blood Pressure Location Rt brachial Rt brachial Position Sitting Sitting Respiration 16 Pulse 53 Pulse Source Pulse Oximeter Temp 97.7 F Temp Source Oral Pulse Oximetry (%) 98 Oxygen Delivery Method Room Air Intake Visit Reasons: 6 month follow up Intake Note: Pt is here today for her 6mo. f/u Allergies acetaminophen [From Percocet] Allergy (Verified 09/18/24 08:24) Rash meperidine [From Demerol] Allergy (Verified 09/18/24 08:24) Rash oxycodone [From Percocet] Allergy (Verified 09/18/24 08:24) Rash Penicillins Allergy (Verified 09/18/24 08:24) Anaphylaxis ibuprofen Adverse Reaction (Verified 09/18/24 08:24) face swollen Medication List - Last Reconciled 09/18/24 by Luz Torres MD albuterol sulfate 90 mcg/actuation 2 inhalations inhalation Q6H PRN cholecalciferol (vitamin D3) 25 mcg PO DAILY estradiol (Yuvafem) mcg vaginal fluticasone propionate 50 mcg/actuation 1 spray intranasal DAILY levothyroxine 50 mcg PO DAILY Tobacco use date assessed: 09/18/24 Dental Screening Dental Screen Date: 09/18/24 Did you have a dental visit in the last 12 months?: Yes Did you have a dental problem in the last 6 months where you did not have access to dental care?: Yes Was dental information given to patient?: Patient has dentist HPI 6 month follow up HPI Details 63-year-old lady with history of hypothy roidism, dyslipidemia, seasonal allergic rhinitis and impaired fasting glucose, here today for follow-up. She had a colonoscopy done last year with removal of a tubular adenoma polyp, repeat colonoscopy due again in 2026 She has been trying to follow recommended diet and has been exercising regularly goes to the gym at around 04:00 o'clock in the morning and spends about an hour doing weights and cardio exercise Latest fasting labs done showed improvement in her triglyceride levels and total cholesterol, thyroid levels are within normal limits as well as vitamin-D . Her fasting blood sugar however slightly elevated at 101 mg/dL. Patient states that she stopped taking her oral vitamin D3 supplements and has been getting vitamin-D injections instead of the med his by in [place] twice a month. Has mild intermittent asthma, uses albuterol as needed, needs a refill. She also is requesting a refill for her fluticasone nasal spray which he takes as needed for her allergic rhinitis. [facility] Medical History (Updated 09/18/24 @ 08:46 by Luz Torres MD) Postmenopausal syndrome Impaired fasting glucose Dyslipidemia Tubular adenoma of colon COVID-19 vaccine series declined Tear of medial meniscus of left knee Encounter for general adult medical examination with abnormal findings Menopause Vitamin D deficiency Obesity (BMI 30.0-34.9) Allergic rhinitis Mild intermittent allergic asthma without complication Osteoarthritis, knee Acquired hypothyroidism Surgical History Hx of colonoscopy History of surgical removal of meniscus of knee H/O abdominoplasty H/O bilateral breast implants Family History Father Diabetes Hypertension Mother Diabetes Hypertension Mental health disorder Brother Diabetes Brother Diabetes Brother Diabetes Sister Diabetes Social History Housing: House Alcohol intake: never Patient Tobacco Use Status: Never used Tobacco e-Cigarette/Vaping Use: Never Used service: No Current occupational status: unemployed Cognitive needs: No Hearing needs: No Vision needs: Yes Female Reproductive History Menstrual Other: Sees Dr. Acosta Questionnaire PHQ-9 Over the last 2 weeks, how often have you been bothered by any of the following problems? 1. Little interest or pleasure in doing things: not at all 2. Feeling down, depressed, or hopeless: not at all 3. Trouble falling or staying asleep, or sleeping too much: not at all 4. Feeling tired or having little energy: not at all 5. Poor appetite or overeating: not at all 6. Feeling bad about yourself - or that you are a failure or have let yourself or your family down: not at all 7. Trouble concentrating on things, such as reading the newspaper or watching television: not at all 8. Moving or speaking so slowly that other people could have noticed. Or the opposite - being so fidgety or restless that you have been moving around a lot more than usual: not at all 9. Thoughts that you would be better off or of hurting yourself in some way: not at all Total score: 0 Depression Screening Interpretation: Negative Depression Screening Done: Yes 12407 - PHQ-9 Billing: Yes Source: Developed by Drs. Anish Paz, Rylee Marx, Siddhartha Ramos and colleagues, with an educational jayleen from [employer]. Thrive Questionnaire Date Thrive assessed: 09/18/24 I am a: Patient What is your living situation today?: I have a steady place to live Within the past 12 months, did the food you bought not last and you didn't have the money to get more?: Never true Within the past 12 months, did you worry whether your food would run out before you got money to buy more?: Never true Do you have trouble paying for medicines?: No Do you have trouble getting transportation to medical appointments?: No Do you have trouble paying your heating and electricity bill?: No Do you have trouble taking care of your child, family member or friend?: No Do you have trouble with day-to-day activities such as bathing, preparing meals, shopping, managing finances, etc.?: No Are you currently unemployed and looking for a job?: No Are you interested in more education?: No THRIVE Score: 0 AUDIT C Alcohol Use Questionnaire (AUDIT-C) 1. How often do you have a drink containing alcohol?: Never Total Score: 0 JULIO-7 AMB Questionnaire JULIO-7 Date JULIO - 7 assessed: 09/18/24 Feeling nervous, anxious, or on edge: 0 = Not at all Not being able to stop or control worryin = Not at all Worrying too much about different things: 0 = Not at all Trouble relaxin = Not at all Being so restless that it is hard to sit still: 0 = Not at all Becoming easily annoyed or irritable: 0 = Not at all Feeling afraid as if something awful might happen: 0 = Not at all Total JULIO-7 score (0-4 normal; 5-9 mild; 10-14 moderate; 15-21 severe): 0 Source: Developed by Drs. Anish Paz, Siddhartha Dupotn Kroenke and colleagues, with an educational jayleen from [employer]. JULIO-7 Assessment Billing JULIO-7 Assessment Tool: JULIO-7 Assessment 56736 Review of Systems Const Reports no additional complaints Eyes Details: Sees [facility] ENT Details: Gets regular dental prophylaxis every 6 months Card Denies chest pain, Denies rapid heart rate, Denies irregular heart rhythm, Denies lightheadedness and Denies dyspnea Resp Denies cough and Denies dyspnea GI Reports no additional complaints Details: Followed by Dr. Acosta for her routine Pap and pelvic exam, has an appointment later this year and is due for her screening mammogram, patient will be calling to schedule appointment Musc Reports no additional complaints Neuro Reports no additional complaints Psych Reports no additional complaints Endo Reports no additional complaints Casey/Lymph Reports no additional complaints Aller/Immun Reports seasonal rhinorrhea Physical exam (Primary Care) Vital Signs: Last Vital Signs Temp 97.7 F 09/18/24 08:10 Pulse 53 09/18/24 08:10 Resp 16 09/18/24 08:10 BP 130/90 H 09/18/24 08:29 Pulse Ox 98 09/18/24 08:10 Oxygen Delivery Method Room Air 09/18/24 08:10 BMI result Body Mass Index 31.2 BMI Assessment/Plan discussion: High BMI High, discussed plan: lifestyle, weight reduction, dietary and physical activity Tobacco/Smoking Status: Tobacco use Status Tobacco use date assessed 09/18/24 09/18/24 08:17 Patient Tobacco Use Status Never used Tobacco 09/18/24 08:10 e-Cigarette/Vaping Use Never Used 09/18/24 08:10 PHQ-9: PHQ-9 Score PHQ-9: Total score 0 09/18/24 08:28 Depression Screening Interpretation: Negative Thrive Assessment: Date of Thrive Assessment Date Thrive assessed 09/18/24 09/18/24 08:20 Const General: healthy appearing, comfortable and no acute distress Nutritional Appearance: obese Orientation/consciousness: patient oriented x3 HENMT General nose exam: Normal external nose present and No nasal discharge present Face and sinus: Yes face symmetric Mouth: Normal oral and palatal mucosa present and moist mucous membranes Eyes General: appearance normal, both eyes and all related structures Neck Neck: Yes full ROM, Yes no lymphadenopathy and Yes supple Thyroid: Thyroid normal Resp Auscultation: clear to auscultation bilaterally Cardio Other: S1-S2 Present regular rate and rhythm GI Other: Normal bowel sounds, soft, nontender, no mass palpated General: Yes no CVA tenderness Back/Spine/Pelvis Back: no CVA tenderness and No back tenderness Neuro General: patient oriented x3, gait normal, tone normal, moves all extremities, Normal light touch and pain sensation, no focal motor deficits and CN's II-XI intact bilaterally Extrem Other: Crepitus noted in both knees General: Yes full ROM, Yes no joint enlargement, Yes no pedal edema, Yes no calf tenderness and Yes normal gait Psych Appearance: grossly normal and well kempt Mental Status: mental status grossly normal Speech and movement: Normal speech and movement present Affect: normal affect Attitude: cooperative Results Reviewed Results Reviewed: Name: Dedra Larson Age/Sex: 63/F : 1960 Unit#: [id number] Attend Dr: Luz Torres MD Re09/15/24 Status: DEP REF [facility] Disch: SPEC : [id number] MILO: 09/15/24 STATUS: COMP REQ : [id number] RECD: 09/15/[address]: Luz Torres MD COMP: 09/15/24 ENTERED: 09/15/[address] [facility] [address]: ORDERED: Glu Fasting, Lipid Panel, Vitamin D 25-OH, Free T4, TSH Test Result Flag Reference FBS 101 H 60-99 mg/dL A fasting glucose from 100-125 mg/dl is considered impaired (pre-diabetes). Triglyceride 179 H <150 mg/dL Desirable Triglyceride: less than 150 mg/dL Borderline High Triglyceride 150-199 mg/dL High Triglyceride: 200-499 mg/dL Very High Triglyceride: greater than or equal to 5OO mg/dL Cholesterol 175 <200 mg/dL Desirable Cholesterol: less than 200 mg/dL Borderline High Cholesterol: 200-239 mg/dL High Cholesterol: greater than 239 mg/dL LDL Calculated 100 H <100 mg/dL Desirable LDL: less than 100 mg/dL Near Optimal/Above Optimal LDL: 110-129 mg/dL Borderline High LDL: 130-159 mg/dL High LDL: 160-189 mg/dL Very High LDL: greater than or equal to 190 mg/dL HDL 40 L >40 mg/dL Desirable HDL: greater than 40 mg/dL Note: This HDL assay may give artificially low results in patients with liver disease. Vit D 25-OH Tot 49.4 >30 ng/mL Health Based Reference Values* < 20 ng/mL Deficient 20-30 ng/mL Insufficient > 30 ng/mL Sufficient *Jeanne HATCH. N Engl J Med. 2007;357:266-280 Care must be taken in interpreting Vitamin D results from different laboratories and methodologies. Published data demonstrated that results from patients undergoing hemodialysis may show a negative bias when tested with various automated 25-OH vitamin D assays when compared to LC-MS/MS. When testing samples from patients whose predominant form of Vitamin D is Vitamin D2, such as patients receiving Vitamin D2 supplementation, results that are subtherapeutic should be confirmed with another method such as LC-MS/MS. Free T4 1.17 0.71-1.85 ng/dL TSH 3rd Gen. 4.99 H 0.32-4.0 uIU/mL Note: A sustained TSH level above 2.5 uIU/mL may warrant further investigation. TSH 3rd Generation ([facility]) Coding Level of Care Code Est Pt Level 4 (35961) Complex EM visit Add On G2211 Diagnoses Impaired fasting glucose R73.01 Dyslipidemia E78.5 Tubular adenoma of colon D12.6 Acquired hypothyroidism E03.9 Mild intermittent allergic asthma without complication J45.20 Non-seasonal allergic rhinitis due to pollen J30.1 Allergic rhinitis trigger: pollen Allergic rhinitis seasonality: non-seasonal Additional Codes PHQ-9 - 57436 - PHQ-9 Billing: Yes ([id number]) JULIO-7 Assessment Billing - JULIO-7 Assessment Tool: JULIO-7 Assessment 10445 ([id number]) Assessment & Plan Assessment & Plan (1) Impaired fasting glucose: Code(s): R73.01 - Impaired fasting glucose Category: Medical Plan: Your previous fasting blood sugars were elevated above 100 mg/dL. Impaired glucose metabolism increases the risk for developing diabetes mellitus type 2, as well as heart attack and stroke later on. Lifestyle changes that promotes weight loss, healthy eating habits, and regular exercise are important, and can prevent the progression to diabetes (2) Dyslipidemia: Code(s): E78.5 - Hyperlipidemia, unspecified Category: Medical Plan: Reviewed recent fasting lipid profile with patient with improvement in triglyc erides and total cholesterol as well LDL cholesterol levels . Continue with adherence to low-cholesterol diet and regular exercise, at least 30 minutes 3 to 4 times a week. Advised patient to make healthy food choices, eat more fruits, vegetables, whole grains, wild caught fish and low-fat dairy. Limit amount of meat and fried or fatty food products, as well as processed foods and fast sharon ds. (3) Tubular adenoma of colon: Code(s): D12.6 - Benign neoplasm of colon, unspecified Category: Medical Plan: She is scheduled to have another repeat colonoscopy done in [address] Dejesus (4) Acquired hypothyroidism: Code(s): E03.9 - Hypothyroidism, unspecified Category: Medical Plan: Thyroid levels are within normal limits, continue with current dose of levothyroxine at 50 mcg daily in a.m. (5) Mild intermittent allergic asthma without complication: Code(s): J45.20 - Mild intermittent asthma, uncomplicated Category: Medical Plan: Refill sent for albuterol inhaler to use as needed for episodes of wheezing and bronchospasm (6) Allergic rhinitis: Code(s): J30.9 - Allergic rhinitis, unspecified Category: Medical Qualifiers: Allergic rhinitis trigger: pollen Allergic rhinitis seasonality: non- seasonal Qualified Code(s): J30.1 - Allergic rhinitis due to pollen Plan: Refill sent on her fluticasone nasal spray, 1 spray per nostril daily as needed for episodes of nasal congestion and runny nose Medications: Refilled levothyroxine 50 mcg PO DAILY 90 tabs 4RF albuterol sulfate 90 mcg/actuation 2 inhalations inhalation Q6H PRN 8.5 grams 3RF shortness of breath or wheezing fluticasone propionate 50 mcg/actuation administer into each nostril 1 spray intranasal DAILY 16 grams 5RF
--- OUTSIDE RECORDS SUMMARY | 2024-09-18 08:16 | XMS_ITS ---
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 [address] [place] [address] 07/07/2024 Jennifer Acosta Plan Of Treatment Next Appt Details Provider Name:Jennifer rodriguez, 10/24/2024 02:40:00 PM, [address], [address], [place], [address], Progress Notes * JACOBLAURA LaraANYIB:1960 ( 63 yo F)Acc No.[id number]:07/07/2024 PROGRESS NOTES Patient:?FRIDA JAMES Appointment Provider:?Jennifer rodriguez M.D. :1960???Age:63 Y???Sex:Female D ate:07/07/2024 Address:[address] [place] [address] [id number] Pcp:LINNEA BANSAL MD Subjective: * Chief Complaints: * ???1. Annual SUPERVISOR PAYROLL Physical. * Medical History:? Objective: * Vitals:? Assessment: Plan: * Treatment: * Images: Billing Information: * Visit Code:? * Procedure Codes:? * Electronic signature of Thierno Acosta MD on 09/18/2024 at 08:16 AM EDT Sign off status: Pending * Appointment Provider:?Jennifer Acosta M.D. Date:?07/07/2024 Generated for Veronica garcia/Danelle/Namrata on:?09/18/2024 08:16 AM EDT
--- OUTSIDE RECORDS SUMMARY | 2024-09-18 08:16 | XMS_ITS | Patient Health Record ---
Author Organization [facility] Address [address] [facility] [address] [place] [address] Care Team Providers Care Sock Knitter Name Role Phone LINNEA BANSAL MD Primary Care Provider Jennifer Moise Unavailable [phone] Allergies Allergen (clinical drug ingredient) Drug/Non Drug Allergy documented on EMR Reaction Allergy Type Onset Date Status Steroids Steroids (uncoded) Unknown Allergy A ctive meperidine DEMEROL Shock Drug Allergy Active acetaminophen / oxycodone PERCOCET Rash Drug Allergy Active ibuprofen Ibuprofen Unknown Drug Allergy Active Penicillin Unknown Drug Allergy Active Reason For Referral No Information Medications Medication SIG (Take, Route, Frequency, Duration) Notes Start Date End Date Status Yuvafem 10 MCG INSERT 1 APPLICATORF UL VAGINALLY 3 TIMES A WEEK for 90 Active Tobramycin-dexAMETHasone 0.3-0.1 % Ophthalmic for 30 Active Levothyroxine Sodium 50 MCG 1 tablet in the morning on an empty stomach Orally Once a day 07/31/2011 Active Ciprofloxacin HCl 500 MG Oral for 10 Active Vitamin D3 25 MCG (1000 UT) 1 capsule Orally Once a day for 30 day(s) Active Social History Tobacco Use: Social History Observation Description Date Details (start date - stop date) Never Smoker NA - NA Tobacco Use/Smoking Question Answer Notes Are you a nonsmoker Alcohol Screen (Audit-C) Question Answer Notes Did you have a drink containing alcohol in the p ast year? No Points 0 Interpretation Negative Sexual History Question Answer Notes Had sex in the past 12 months (vaginal, oral, or anal)? Yes with Men only Prevention strategies discussed: Other Problems Problem Type SNOMED Code ICD Code Onset Dates Problem Status W/U Status Risk Notes Problem Postmenopausal atrophic vaginitis (64772115) Postmenopausal atrophic vaginitis (N95.2) Active confirmed Problem Screening for malignant neoplasm of breast (863999466) Encounter for screening mammogram for malignant neoplasm of breast (Z12.31) Active confirmed Problem Hypothyroidism (55687217) Unspecified hypothyroidism (244.9) Active confirmed Major Problem Gynecological examination normal ([id number]) Routine gynecological examination (V72.31) Active confirmed Major Plan Of Treatment Pending Test Test Name Order Date MAMMOGRAM, SCREENING 07/04/2023 Urinalysis 07/04/2023 MM Digital Mammo Screening 06/16/2020 MM Digital Mammo Screening 06/20/2021 MM Digital Mammo Screening 06/21/2022 MM Digital Mammo Screening 07/04/2023 PELVIC ULTRASOUND W/TRANSVAGINAL 020 Next Appt Details Provider Name:Jennifer rodriguez, 10/24/2024 02:40:00 PM, [address], [place], [address], Insurance Providers Payer Name Payer Address Payer Phone Subscriber Number Group Number Insured Name Patient Relationship to Insured Coverage Start Date Coverage End Date [employer] [address] [place], [place] [phone] [id number] FRIDA JAMES Self - patient is the insured Medical (General) History Medical History History ICD Code Hypothyroidism, unspecified E03.9 Other asthma J45.998 Headache R51 Frequency of micturition R35.0 Pelvic Pain R10.2 Inconclusive mammogram R92.2 Surgical History Surgery Date(Month/Year) Bilateral Tubal Ligation Breast Augmentation Abdominoplasty Colonoscopy Left Knee Meniscus Surgery Hospitalization History Reason Date(Month/Year) See Surgical Hx 3 Vaginal Deliveries
--- OUTSIDE RECORDS SUMMARY | 2024-09-18 08:16 | XMS_ITS ---
Author Organization [facility] Address [address] [place] [address] Care Team Providers Care Rehab Manager Name Role Phone LINNEA BANSAL MD Primary Care Provider Jennifer Moise Unavailable [phone] Allergies Allergen (clinical drug ingredient) Drug/Non Drug Allergy documented on EMR Reaction Allergy Type Onset Date Status Steroids Steroids (uncoded) Unknown Allergy A ctive meperidine DEMEROL Shock Drug Allergy Active acetaminophen / oxycodone PERCOCET Rash Drug Allergy Active ibuprofen Ibuprofen Unknown Drug Allergy Active Penicillin Unknown Drug Allergy Active Results Component Value Reference Range Notes Urinalysis (Not yet reviewed by provider) Interpretation: Performing Lab: Notes/Report: PH 7.0 PROTEIN NEG GLUCOSE NEG BLOOD NEG THIN PREP,HPV,SID IF HPV+ ( >29YR)(DIAG) Reviewed date:07/13/2023 12:00:27 PM Interpretation: Performing Lab:Testing performed or reported by [facility], a Service of [facility], [address] [place] [address] Carlitos Jamil MD, Certified Coatings Inspector [facility]# [id number] Notes/Report: Patient Name: FRIDA JAMES Patient : 1960 (Age: 62) Lab Collection Date: 07/04/2023 Accession Date: 07/04/2023 Sign Out Date: 07/10/2023 Tissue Source: 1: THINPREP BAGGER AND STOCK HANDLER HELPER PAP TEST, CERVICAL/VAGINAL: Final Diagnosis: NEGATIVE FOR INTRAEPITHELIAL LESION OR MALIGNANCY. Atrophy. Satisfactory for evaluation. Procedures/Addenda: Human Papilloma Virus, High-Risk(Reflex GT) Status: Signed Out Interpretation: Negative Methodology: Red Blue Voice Aptima HPV mRNA assay (Nucleic Acid Amplification Test, NAAT) Clinical History: Date of Last Menstrual Period: ORACIO Menstrual History: not available Contraceptive History: not available Ancillary Testing: HPV (Reflex GT) Case imaged by the ThinPrep Imaging System with manual rescreening or review. Performed at [facility] department of Cytology, Orville Rojas [place] Clinical History (other): Z01.419 Phone #: [phone], On-Call Pathologist: [id number] REASON FOR VISIT Annual BAGGER AND STOCK HANDLER HELPER Physical, Annual BAGGER AND STOCK HANDLER HELPER Physical 60-85+ Medications Medication SIG (Take, Route, Frequency, Duration) Notes Start Date End Date Status Tobramycin-dexAMETHasone 0.3-0.1 % Ophthalmic for 30 Active Yuvafem 10 MCG 1 tablet Vaginal THR ICE A WEEK for 90 days 07/04/2023 Active Levothyroxine Sodium 50 MCG 1 tablet in the morning on an empty stomach Orally Once a day 07/31/2011 Active Ciprofloxacin HCl 500 MG Oral for 10 Active Vitamin D3 25 MCG (1000 UT) 1 capsule Or ally Once a day for 30 day(s) Active [...] Status Risk Notes Problem Postmenopausal atrophic vaginitis (36121696) Postmenopausal atrophic vaginitis (N95.2) Active confirmed Vital Signs Temperature 97.3 degrees Fahrenheit 07/04/20 23 Blood pressure systolic 130 mm Hg 07/04/20 23 Blood pressure diastolic 90 mm Hg 023 Height 60 in 07/04/2023 Weight 170 lbs 07/04/2023 BMI 33.20 kg/m2 07/04/2023 Encounters Encounter Location Date Provider Diagnosis Total [address] [place] [address] 07/04/2023 Jennifer Acosta Encounter for gynecological examination (general) (routine) without abnormal findings Z01.419 ; Encounter for screening mammogram for malignant neoplasm of breast Z12.31 and Postmenopausal atrophic vaginitis N95.2 Assessments Encounter Date Diagnosis (ICD Code) Assessment Notes Treatment Notes Treatment Clinical Notes Section Notes 07/04/2023 Encounter for gynecological examination (general) (routine) without abnormal findings (ICD-10 - Z01.419) PAP TEST WITH HPV TYPING WAS OBTAINED. COLONOSCOPY WAS RECOMMENDED AND PAT WAS REFERRED TO [facility]. 07/04/2023 Encounter for screening mammogram for malignant neoplasm of breast (ICD-10 - Z12.31) REGULAR MAMMOGRAMS AND SBE'S WERE RECOMMENDED. 07/04/2023 Postmenopausal atrophic vaginitis (ICD-10 - N95.2) DISCUSSED FINDINGS, DX AND TX OPTIONS. RECOMMENDED INTRAVAGINAL ESTROGEN AND DISCUSSED BENEFITS AND RISKS. PAT AGREED TO TRY. SHE HAS NO CONTRAINDICATIONS AND ACCEPTS RISKS. DETAILED INSTRUCTIONS WERE GIVEN. Plan Of Treatment Medication Medication Name Sig Start Date Stop Date Notes Yuvafem 10 MCG 1 tablet Vaginal THRICE A WEEK for 90 days 07/04/2023 Treatment Notes Assessment Notes Encounter for gynecological examination (general) (routine) without abnormal findings PAP TEST WITH HPV TYPING WAS OBTAINED. COLONOSCOPY WAS RECOMMENDED AND PAT WAS REFERRED TO [facility]. Encounter for screening mamm ogram for malignant neoplasm of breast REGULAR MAMMOGRAMS AND SBE'S WERE RECOMMENDED. Postmenopausal atrophic vaginitis DISCUSSED FINDINGS, DX AND TX OPTIONS. RECOMMENDED INTRAVAGINAL ESTROGEN AND DISCUSSED BENEFITS AND RISKS. PAT AGREED TO TRY. SHE HAS NO CONTRAINDICATIONS AND ACCEPTS RISKS. DETAILED INSTRUCTIONS WERE GIVEN. Pending Test Test Name Order Date MAMMOGRAM, SCREENING 07/04/2023 Urinalysis 07/04/2023 MM Digital Mammo Screening 07/04/2023 Next Appt Details Follow Up: 1 Year, Reason: Provider Name:Jennifer rodriguez, 10/24/2024 02:40:00 PM, [address], [address], [place], [address], Progress Notes * DORYS JAMES:1960 ( 62 yo F)Acc No.[id number]:07/04/2023 PROGRESS NOTES Patient:?FRIDA JAMES Appointment Provider:?Jennifer rodriguez M.D. :1960???Age:62 Y???Sex:Female D ate:07/04/2023 Address:[address] [place] [address] [place] Pcp:LINNEA BANSAL MD Subjective: * Chief Complaints: * ???Annual BAGGER AND STOCK HANDLER HELPER PhysicalAnnual BAGGER AND STOCK HANDLER HELPER Physical 60-85+ * HPI: ???New/Follow-up Patient Consult:? PAT ENTERED MENOPAUSE AT AGE 53. SHE C/O DYSPAREUNIA AND VAGINAL DRYNESS. ?S/P ABDOMINOPLASTY AND BREAST AUGMENTATION YEARS AGO. SHE IS DOING WELL. ?PELVIC ULTRASOUND DONE IN 2018 SHOWED FIBROIDS. ?HER LAST MAMMOGRAM DONE IN OCTOBER 2022 SHOWED BREASTS ARE NOT DENSE AND WAS NORMAL. THEY USED TO BE DENSE. SHE HAS NO FAMILY HX OF BREAST, OVARIAN, COLON OR UTERINE CA. ?HER LAST PAP TEST IN 2019 WAS NEGATIVE AND HPV NEGATIVE. ?SHE HAD A COLONOSCOPY DONE IN 2012. ?SHE HAS NO RISK FACTORS NECESSITATING A BMD AT THIS TIME. ???Annual:? Patient presents for annual exam, ages 60-85, postmenopausal. ?General Health Maintenance:?Current breast complaints:?no breast pain, mass, discharge, or skin changes ?Urinary problems:?patient reports no urinary health problems or bowel health problems ?Calcium intake:?takes adequate calcium via diet and supplementation ?Significant BAGGER AND STOCK HANDLER HELPER problems:?no significant tab builder symptoms or problems * ROS:?general:?no?chest pain.?no?palpitations.?no?headache.?no?cough.?no?shortness of breath.?no?fever.?no?unexplained weight loss.?no?nausea/vomiting.?no?change in bowel movements.?no blood in stool.?no?genitourinary complaints.?no?skin complaints.? * Medical History:? * Belt Turner History:?/ Para?3/3.?Sexual activity?currently sexually active.?Last Pap Smear:?06/16/20 NIL, NEG HPV, 2012.?Mammogram:?10/30/22 < 50% density, 05/22/19 50-75% density.?LMP and menses?Oracio.? Control:?bilateral tubal ligation.?Colonoscopy?2012.? * OB History:?Total pregnancies?3.?Total living children?3.?NVD?3.? * Surgical History:?Bilateral Tubal Ligation Breast Augmentation Abdominoplasty Colonoscopy Left Knee Meniscus Surgery * Hospitalization/Major Diagno stic Procedure:?3 Vaginal Deliveries See Surgical Hx * Family History:?Mother: dece ased, hypertension.?Father: , diabetes.? * Social History:?Tobacco Use:?Tobacco Use/Smoking?Are you a?nonsmoker ???Sexual History:?Sexual History?Had sex in the past 12 months (vaginal, oral, or anal)??Yes ?with?Men only ?Prevention strategies discussed:?Other ?Details of Sexual History?Are you sexually active??Yes ???Drugs/Alcohol:?Drugs?Have you used drugs other than those for medical reasons in the past 12 months??No ?Alcohol Screen (Audit-C)?Did you have a drink containing alcohol in the past year??No ?Points?0 ?Interpretation?Negative ???Miscellaneous:?Children: yes, 3. ?Exercise: yes, walking. ?Home smoke detector use: yes. ?Living with: spouse. ?Marital status: . ?Natural support system: yes. 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 ?Sexually active: yes, monogamous relationship. * Medications:?TakingVitamin D 3 25 MCG (1000 UT) Capsule 1 capsule Orally Once a dayLevothyroxine Sodium 50 MCG Tablet 1 tablet in the morning on an empty stomach Orally Once a dayCiprofloxacin HCl 500 MG Tablet Oral Tobramycin-dexAMETHasone 0.3-0.1 % Suspension Ophthalmic Medication List reviewed and reconciled with the patientTaking Vitamin D3 25 MCG (1000 UT) Capsule 1 capsule Orally Once a dayTaking Levothyroxine Sodium 50 MCG Tablet 1 tablet in the morning on an empty stomach Orally Once a dayTaking Ciprofloxacin HCl 500 MG Tablet Oral Taking Tobramycin- dexAMETHasone 0.3-0.1 % Suspension Ophthalmic Medication List reviewed and reconciled with the patient * Allergies:?DEMEROL: Shock - AllergyPERCOCET: Rash - AllergyPenicillin: AllergyIbuprofen: AllergySteroids: Allergyno[Allergies Verified] Objective: * Vitals:?Ht: 60 in, Wt:170 lb s, BMI:33.20 Index, BP:130/90 mm Hg, Temp:97.3 F. * Examination: ???General Exam: ?CONSTITUTIONAL:?General Appearance:?alert, in no acute distress, normal, well nourished ?NECK/THYROID:?Inspection/Palpation:?normal ?Thyroid:?normal size and shape ?RESPIRATORY:?Auscultation: clear to auscultation bilaterally, Respiratory Effort: normal.?CARDIOVASCULAR:?Auscultation: regular rate and rhythm.?BREAST, Right:?Inspection/Palpation:?no discharge, no masses present, no nipple retraction, no skin changes, no skin dimpling, no tenderness, no lymphadenopathy, no axillary mass, no axillary tenderness ?BREAST, Left:?Inspection/Palpation:?no discharge, no masses present, no nipple retraction, no skin changes, no skin dimpling, no tenderness, no lymphadenopathy, no axillary mass, no axillary tenderness ?GASTROINTESTINAL:?Abdomen:?no masses, nontender, nondistended ?Liver and Spleen:?normal ?Hernias:?no hernias present, no inguinal adenopathy ?MUSCULOSKELETAL:?Inspection/Palpation:?no clubbing, cyanosis, or edema ?SKIN:?Skin:?normal ?NEURO/PSYCH:?Orientation:?time , place, person ?Mood/Affect:?normal?Genitourinary: ?EXTERNAL GENITALIA:?External Genitalia:?normal, no lesions ?VAGINA:?Vagina:?atrophic vaginal tissue, minimal moisture ?BLADDER:?Bladder:?no mass, nontender ?URETHRA:?Urethra:?no erythema or lesions present ?CERVIX:?Cervix:?no lesions, nontender ?UTERUS:?Uterus:?nontender, normal contour, normal mobility, normal size ?ADNEXA:?Adnexa:?no masses, no tenderness ?ANUS AND PERINEUM:?Anus/Perineum:?visually normal??? Assessment: * Assessment: 1.?Encounter for gynecologic al examination (general) (routine) without abnormal findings - Z01.419?2.?Encounter for screening mammogram for malignant neoplasm of breast - Z12.31?3.?Postmenopausal atrophic vaginitis - N95.2? Plan: * Treatment: ? Value Reference Range ?CYTOLOGY, BAGGER AND STOCK HANDLER HELPER Patient Name: FRIDA JAMES - * VAGINAL/CERVICAL: LMP>BREOST WISAM STEELE 07/13/2023 11:59:43 AM > NIL, neg HR HPVThis lab was reviewed by WISAM PRESLEY on 07/13/2023 at 12:00 PM EST ?LAB: Urinalysis* ? Value Reference Range ?PH 7.0 * ?PROTEIN NEG * ?GLUCOSE NEG * ?BLOOD NEG * Erna Bowser 3 3:12:44 PM > Notes: PAP TEST WITH HPV TYPING WAS OBTAINED. COLONOSCOPY WAS RECOMMENDED AND PAT WAS REFERRED TO [facility].??2.?Encounter for screening mammogram for malignant neoplasm of breast?Imaging: MM Digital Mammo Screening Notes: REGULAR MAMMOGRAMS AND SBE'S WERE RECOMMENDED.??3.?Postmenopausal atrophic vaginitis? Start Yuvafem Tablet, 10 MCG, 1 tablet, Vaginal, THRICE A WEEK, 90 days, 36 Tablet, Refills 4.?? Notes: DISCUSSED FINDINGS, DX AND TX OPTIONS. RECOMMENDED INTRAVAGINAL ESTROGEN AND DISCUSSED BENEFITS AND RISKS. PAT AGREED TO TRY. SHE HAS NO CONTRAINDICATIONS AND ACCEPTS RISKS. DETAILED INSTRUCTIONS WERE GIVEN.?? * Imaging:? * ?Imaging: MAMMOGRAM, SCR EENING * Procedure Codes:? * Preventive Medicine:? ??YOUR PREVENTIVE WELLNESS PLAN:?Osteoporosis prevention?Calcium, D, strength training.?Breast Cancer Screening (Mammogram):?annually.?Cervical Cancer Screening (Pap Smear):?q 3 years with HPV screen.?Colorectal Cancer Screening:?q 10 years.? * Follow Up:?1 Year * Images: Billing Information: * Visit Code:? [id number] Preventive Care Est Pt. Age 65 and over. * Procedure Codes:? * Sign off status: Completed true * Appointment Provider:?Jennifer Acosta M.D. Date:?07/04/2023 Generated for Veronica garcia/Danelle/Namrata on:?09/18/2024 08:16 AM EDT History and Physical Notes * HPI (History of Present Illness) Category Sub-Category Detail Notes Category Not es New/Follow-up Patient Consult PAT ENTERED MENOPAUSE AT AGE 53. SHE C/O DYSPAREUNIA AND VAGINAL DRYNESS. S/P ABDOMINOPLASTY AND BREAST AUGMENTATION YEARS AGO. SHE IS DOING WELL. PELVIC ULTRASOUND DONE IN 2018 SHOWED FIBROIDS. HER LAST MAMMOGRAM DONE IN OCTOBER 2022 SHOWED BREASTS ARE NOT DENSE AND WAS NORMAL. THEY USED TO BE DENSE. SHE HAS NO FAMILY HX OF BREAST, OVARIAN, COLON OR UTERINE CA. HER LAST PAP TEST IN 2019 WAS NEGATIVE AND HPV NEGATIVE. SHE HAD A COLONOSCOPY DONE IN 2012. SHE HAS NO RISK FACTORS NECESSITATING A BMD AT THIS TIME. Annual General Health Maintenance: Current breast complaints:: no breast pain, mass, discharge, or skin changes Urinary problems:: patient r eports no urinary health problems or bowel health problems Calcium intake:: takes adequ ate calcium via diet and supplementation Significant BAGGER AND STOCK HANDLER HELPER problems:: n o significant tab builder symptoms or problems Examination Category Sub-Category Detail Notes Category Not es General Exam CONSTITUTIONAL: General Appearan ce:: alert, in no acute distress, normal, well nourished NECK/THYROID: Thyroid:: normal size and shape Inspection/Palpation:: normal RESPIRATORY: Auscultation: clear to auscultation bilaterally, Respiratory Effort: normal CARDIOVASCULAR: Auscultation: regula r rate and rhythm GASTROINTESTINAL: Hernias:: no hernias present, no inguinal adenopathy Liver and Spleen:: normal Abdomen:: no masses, nontender, nondiste nded MUSCULOSKELETAL: Inspection/Palpation:: no clubb ing, cyanosis, or edema SKIN: Skin:: normal NEURO/PSYCH: Mood/Affect:: normal Orientation:: time , place, person BREAST, Right: Inspection/Palpation :: no discharge, no masses present, no nipple retraction, no skin changes, no skin dimpling, no tenderness, no lymphadenopathy, no axillary mass, no axillary tenderness BREAST, Left: Inspection/Palpation :: no discharge, no masses present, no nipple retraction, no skin changes, no skin dimpling, no tenderness, no lymphadenopathy, no axillary mass, no axillary tenderness Genitourinary EXTERNAL GENITALIA: External Genitalia:: nor mal, no lesions VAGINA: Vagina:: atrophic vaginal tissue , minimal moisture BLADDER: Bladder:: no mass, nontender URETHRA: Urethra:: no erythema or lesions present CERVIX: Cervix:: no lesions, nontender UTERUS: Uterus:: nontender, normal conto ur, normal mobility, normal size ADNEXA: Adnexa:: no masses, no tendernes s ANUS AND PERINEUM: Anus/Perineum:: visually norm al
--- OUTSIDE RECORDS SUMMARY | 2024-09-18 08:16 | XMS_ITS | Clinical Summary ---
Author Organization [facility] Address [address] [place] [address] Care Team Providers Care Train Gateman Name Role Phone Luz Torres MD Primary Care Provider [phone] Allergies Active Allergy Reactions Criticality Noted Date [...] Other, Reported on 08/30/2021 D3-50 1.25 MG (18667 UT) capsule TAKE 1 CAPSULE BY ONCE [...] age to complete this topic Care Teams Train Gateman Relationship Specialty Start Date End Date Luz Torres MD [address] [place] [address] MARY CHOW [id number] PCP - General Internal Medicine 01/25/21
--- OUTSIDE RECORDS SUMMARY | 2024-09-18 08:16 | XMS_ITS ---
Author Name [facility] Organization Unknown History of Medication Use Medication Directions Dispensed Refills Start Date End Date Stat Euflexxa 10 mg/mL (mw 2.4-3.6 million) intra-articular syringe Inject 10 mg by intra-articular route for 21 days. 02/14/2024 active tobramycin 0.3 %-dexamethasone 0.1 % eye drops,suspension PLACE 1 DROP INTO LEFT EYE FOUR TIMES A DAY FOR 10 DAYS. active Allergies Allergen Reaction Severity Comment Documented Date Source Statu s PERCOCET ENS_AONECT PENICILLINS ENS_AONECT CORTICOSTEROIDS (GLUCOCORTICOIDS) ENS_AONECT DEMEROL ENS_AONECT Problems Problem Status Onset Date Problem Type Date of Resoluti on Source Pain of right knee joint active 2023-11-15 ProblemAct ENS_AONECT Encounters Encounter Type Encounter Reason Primary Diagnosis Location Date Ambulatory [facility] 07/02/2024 Ambulatory [facility] 05/16/2024 Ambulatory [facility] 04/12/2024 Ambulatory [facility] 03/06/2024 Ambulatory [facility] 02/28/2024 Ambulatory [facility] 02/21/2024 Ambulatory [facility] 02/14/2024 Ambulatory [facility] 11/15/2023 Ambulatory [facility] 11/15/2023 Ambulatory [facility] 11/09/2023 Ambulatory [facility] 11/09/2023 Ambulatory [facility] 11/09/2023
[2024-09-18 08:29] VITALS: BP 130/90
== END 2024-09-18 08:39 | disposition home or self-care (01) ==
LOC: HO.HMCC 08:08
PROVIDERS: PCP Internal Medicine; Visit Provider Internal Medicine
DX: R73.01 Impaired fasting glucose (principal); E78.5 Hyperlipidemia, unspecified; D12.6 Benign neoplasm of colon, unspecified; E03.9 Hypothyroidism, unspecified; J45.20 Mild intermittent asthma, uncomplicated; J30.1 Allergic rhinitis due to pollen

== ENCOUNTER → 2024-09-18 08:08 | Outpatient (BNVA) | payer OTHER, SELFPAY | PROVIDERS: PCP Internal Medicine; Visit Provider Internal Medicine | DX: R73.01 Impaired fasting glucose (principal); E78.5 Hyperlipidemia, unspecified; E03.9 Hypothyroidism, unspecified; J45.20 Mild intermittent asthma, uncomplicated; J30.1 Allergic rhinitis due to pollen; D12.6 Benign neoplasm of colon, unspecified; Z79.899 Other long term (current) drug therapy | CPT/HCPCS: 96127 ==

== ENCOUNTER 2025-02-06 15:25 | Outpatient (REF) | payer OTHER, SELFPAY ==
--- OUTSIDE RECORDS SUMMARY | 2025-02-06 15:27 | XMS_ITS | Clinical Summary ---
Author Organization [facility] Address [address] [place] [address] Care Team Providers Care Staff Physical Therapist Name Role Phone Luz Torres MD Primary Care Provider [phone] Allergies Active Allergy Reactions Criticality Noted Date [...] Other, Reported on 08/30/2021 D3-50 1.25 MG (31786 UT) capsule TAKE 1 CAPSULE BY ONCE [...] (1 of 2) 2012 Influenza Vaccine (#1) 2025 RSV Adult > 60+ Yrs or Pregn [...] age to complete this topic Care Teams Staff Physical Therapist Relationship Specialty Start Date End Date Luz Torres MD [address] [place] [address] MARY CHWO [id number] PCP - General Internal Medicine 01/25/21
--- OUTSIDE RECORDS SUMMARY | 2025-02-06 15:27 | XMS_ITS ---
Author Name [facility] Organization Unknown History of Medication Use Medication Directions Dispensed Refills Start Date End Date Stat us Euflexxa 10 mg/mL (mw 2.4-3.6 million) intra-articular syringe Inject 10 mg by intra-articular route for 21 days. 02/14/2024 active tobramycin 0.3 %-dexamethasone 0.1 % eye drops,suspension PLACE 1 DROP INTO LEFT EYE FOUR TIMES A DAY FOR 10 DAYS. active Allergies Allergen Reaction Severity Comment Documented Date Source Statu s CORTICOSTEROIDS (GLUCOCORTICOIDS) ENS_AONECT DEMEROL ENS_AONECT PENICILLINS ENS_AONECT PERCOCET ENS_AONECT Problems Problem Status Onset Date Problem Type Date of Resoluti on Source Pain of right knee joint active 2023-11-15 ProblemAct ENS_AONECT Encounters Encounter Type Encounter Reason Primary Diagnosis Location Date Ambulatory [facility] [place] 07/02/2024 Ambulatory [facility] [place] 05/16/2024 Ambulatory [facility] [place] 04/12/2024 Ambulatory [facility] [place] 03/06/2024 Ambulatory [facility] [place] 02/28/2024 Ambulatory [facility] [place] 02/21/2024 Ambulatory [facility] [place] 02/14/2024 Ambulatory [facility] 11/15/2023 Ambulatory [facility] [place] 11/15/2023 Ambulatory [facility] [place] 11/09/2023 Ambulatory [facility] [place] 11/09/2023 Ambulatory [facility] [place] 11/09/2023
--- OUTSIDE RECORDS SUMMARY | 2025-02-06 15:27 | XMS_ITS | Patient Health Record ---
Author Organization [employer] [facility] Address [address] [place] [address] Care Team Providers Care Traffic Operations Manager Name Role Phone LINNEA BANSAL MD Primary Care Provider Jennifer Moise Unavailable [phone] Allergies Allergen (clinical drug ingredient) Drug/Non Drug Allergy documented on EMR Reaction Allergy Type Onset Date Status Steroids Steroids (uncoded) Unknown Allergy A ctive meperidine DEMEROL Shock Drug Allergy Active acetaminophen / oxycodone PERCOCET Rash Drug Allergy Active ibuprofen Ibuprofen Unknown Drug Allergy Active Penicillin Unknown Drug Allergy Active Results Component Value Reference Range Notes Urinalysis Reviewed date:10/24/2024 03:02:03 PM Interpretation: Performing Lab: Notes/Report: PH 6.0 PROTEIN Neg GLUCOSE Neg BLOOD Neg Reason For Referral No Information Medications Medication SIG (Take, Route, Frequency, Duration) Notes Start Date End Date Status Yuvafem 10 MCG INSERT 1 APPLICATORF UL VAGINALLY 3 TIMES A WEEK; Duration: 90 Active Levothyroxine Sodium 50 MCG 1 tablet in the morning on an empty stomach Orally Once a day 07/31/2011 Active Tobramycin-dexAMETHasone 0.3-0.1 % Ophthalmic; Duration: 30 Act arian Yuvafem 10 MCG 1 tablet Vaginal THR ICE A WEEK; Duration: 90 days 10/24/2024 Active Vitamin D3 25 MCG (1000 UT) 1 capsule Orally Once a day; Duration: 30 day(s) Active Social History Tobacco Use: Social History Observation Description Date Details (start date - stop date) Never Smoker NA - NA Sexual History Question Answer Notes Had sex in the past 12 months (vaginal, oral, or anal)? Yes with Men only Prevention strategies discussed: Other AUDIT-C (Standard) Question Answer Notes Did you have a drink containing alcohol in the p ast year? No Points 0 Interpretation Negative Tobacco Control (Standard) Question Answer Notes Tobacco use: Nonsmoker Problems Problem Type SNOMED Code ICD Code Onset Dates Problem Status W/U Status Risk Notes Problem Postmenopausal atrophic vaginitis (40595337) Postmenopausal atrophic vaginitis (N95.2) Active confirmed Problem Screening for malignant neoplasm of breast (059587478) Encounter for screening mammogram for malignant neoplasm of breast (Z12.31) Active confirmed Problem Hypothyroidism (70296825) Unspecified hypothyroidism (244.9) Active confirmed Major Problem Gynecological examination normal (941323401476344) Routine gynecological examination (V72.31) Active confirmed Major Vital Signs Temperature 98.3 degrees Fahrenheit 10/24/2024 Blood pressure diastolic 88 mm Hg 10/24/2024 Height 60 in 10/24/2024 Blood pressure systolic 152 mm Hg 10/24/2024 Weight 165 lbs 10/24/2024 BMI 32.22 kg/m2 10/24/2024 Encounters Encounter Location Date Provider Diagnosis [address] [place] [address] 10/24/2024 Jennifer Acosta Encounter for screening mammogram for malignant neoplasm of breast Z12.31 ; Postmenopausal atrophic vaginitis N95.2 ; Leiomyoma of uterus, unspecified D25.9 ; Encounter for gynecological examination (general) (routine) without abnormal findings Z01.419 and Dense breasts, unspecified R92.30 Assessments Encounter Date Diagnosis (ICD Code) Assessment Notes Treatment Notes Treatment Clinical Notes Section Notes 10/24/2024 Encounter for screening mammogram for malignant neoplasm of breast (ICD-10 - Z12.31) REGULAR MAMMOGRAMS AND SBE'S WERE RECOMMENDED. 10/24/2024 Postmenopausal atrophic vaginitis (ICD-10 - N95.2) CONITNUE USING YUVAFEM THRICE A WEEK. USE LUBRICANTS BEFORE IC. 10/24/2024 Leiomyoma of uterus, unspecified (ICD-10 - D25.9) DISCUSSED PREVIOUS ULTRASOUND AND FIBROIDS AND REASSURED PAT THAT 70% OF WOMEN HAVE THIS AND ARE ASYMPTOMATIC. 10/24/2024 Dense breasts, unspecified (ICD-10 - R92.30) DISCUSSED DENSE BREASTS ON MAMMOGRAM AND ITS IMPLICATIONS. 3D MAMMOGRAMS WERE RECOMMENDED. 10/24/2024 Encounter for gynecological examination (general) (routine) without abnormal findings (ICD-10 - Z01.419) NO PAP TEST, DUE IN 2025. Plan Of Treatment Pending Test Test Name Order Date MAMMOGRAM, SCREENING 07/04/2023 MAMMOGRAM, SCREENING 10/24/2024 Urinalysis 07/04/2023 MM Digital Mammo Screening 10/24/2024 MM Digital Mammo Screening 06/16/2020 MM Digital Mammo Screening 06/20/2021 MM Digital Mammo Screening 06/21/2022 MM Digital Mammo Screening 07/04/2023 PELVIC ULTRASOUND W/TRANSVAGINAL 020 Next Appt Details Provider Name:Jennifer Alexander jennifer, 10/30/2025 02:40:00 PM, [address], [address], [place], [address], Insurance Providers Payer Name Payer Address Payer Phone Subscriber Number Group Number Insured Name Patient Relationship to Insured Coverage Start Date Coverage End Date [facility] [address] [place], [place] [id number] FRIDA JAMES Self - patient is the insured Medical (General) History Medical History History ICD Code Hypothyroidism, unspecified E03.9 Other asthma J45.998 Headache R51 Pelvic Pain R10.2 Inconclusive mammogram R92.2 Dense breasts, unspecified R92.30 Mammographic heterogeneous density, bila teral breasts R92.333 Mammographic fibroglandular density, harpreet ateral breasts R92.323 Postmenopausal atrophic vaginitis N95.2 Surgical History Surgery Date(Month/Year) Bilateral Tubal Ligation Breast Augmentation Abdominoplasty Colonoscopy Left Knee Meniscus Surgery Hospitalization History Reason Date(Month/Year) 3 Vaginal Deliveries See Surgical Hx
== END 2025-02-06 15:26 | disposition home or self-care (01) ==
LOC: HO.MAMMO 15:25
PROVIDERS: PCP Internal Medicine; Visit Provider Internal Medicine
DX: Z12.31 Encounter for screening mammogram for malignant neoplasm of breast (principal)
CPT/HCPCS: 77063; 77067

== ENCOUNTER → 2025-02-06 15:45 | Outpatient (BNV) | payer OTHER, SELFPAY | PROVIDERS: PCP Internal Medicine; Visit Provider Internal Medicine | DX: Z12.31 Encounter for screening mammogram for malignant neoplasm of breast (principal) | CPT/HCPCS: 77063; 77067 ==

== ENCOUNTER 2025-03-02 07:22 | Outpatient (REF) | payer OTHER, SELFPAY ==
--- NOTE | ~2025-03-02 | MM_ITS ---
EXAMINATIONS: 1. MM DIAGNOSTIC DIGITAL BREAST TOMOSYNTHESIS, LEFT 2. Targeted ultrasound of the left breast CLINICAL INFORMATION: Callback from screening for left breast focal asymmetry retroareolar region anterior depth. COMPARISON: Comparison made to multiple prior, most recent February 06, 2025, and most remote May 22, 2019. TECHNIQUE: Digital breast tomosynthesis is performed in full-field ML 90 degrees along with computer-aided detection (CAD). Synthesized 2D images are generated from the tomosynthesis. Spot compression tomosynthesis images were also obtained. FINDINGS: BREAST COMPOSITION: There are scattered areas of fibroglandular density (ACR BI-RADS breast composition Category b). LEFT BREAST: On today's images, the appearance of previously described focal asymmetry in the lower inner quadrant posterior depth is similar to multiple prior studies as far back as 2019. Targeted ultrasound was performed at the location of the mammographic finding. The survey shows ill-defined hypoechoic area surrounding a 0.7 x 0.6 x 0.6 cm bilobed cyst at 6 o'clock position 2 cm from the nipple. The sonographic appearance of the local breast tissue is not significantly changed from the ultrasound from June 03, 2019. MM/MM tomosynthesis added views L IMPRESSION: LEFT BREAST: Chronic focal asymmetry in the lower inner quadrant posterior depth, similar to 2019. Benign, no mammographic evidence of malignancy. Normal interval follow-up is recommended in 12 months. ASSESSMENT: BI-RADS 2 - Benign Findings RECOMMENDATION: 1 year F/U Results were provided to the patient at time of visit by the technologist. This patient's information was entered into a reminder system with a target due date for their next mammogram. Electronically signed by: Sophia Nails MD 03/02/2025 08:14 AM EDT
--- OUTSIDE RECORDS SUMMARY | 2025-03-02 07:24 | XMS_ITS | Clinical Summary ---
Author Organization [facility] Address [address] [place] [address] Care Team Providers Care Packer Name Role Phone Luz Torres MD Primary Care Provider [phone] Allergies Active Allergy Reactions Criticality Noted Date [...] Other, Reported on 08/30/2021 D3-50 1.25 MG (41057 UT) capsule TAKE 1 CAPSULE BY ONCE [...] age to complete this topic Care Teams Packer Relationship Specialty Start Date End Date Luz Torres MD [address] [place] [address] MARY CHOW [id number] PCP - General Internal Medicine 01/25/21
--- OUTSIDE RECORDS SUMMARY | 2025-03-02 07:24 | XMS_ITS | Patient Health Record ---
Author Organization [employer] [facility] Address [address] [place] [address] Care Team Providers Care Machine Stripper Cutter Name Role Phone LINNEA BANSAL MD Primary Care Provider Jennifer Moise Unavailable [phone] Allergies Allergen (clinical drug ingredient) Drug/Non Drug [...] Status Risk Notes Problem Postmenopausal atrophic vaginitis (12389768) Postmenopausal atrophic vaginitis (N95.2) Active confirmed Problem Screening for malignant neoplasm of breast (565382187) Encounter for screening mammogram for malignant neoplasm of breast (Z12.31) Active confirmed Problem Hypothyroidism (98042938) Unspecified hypothyroidism (244.9) Active confirmed Major Problem Gynecological examination normal (971846859687755) Routine gynecological examination (V72.31) Active confirmed Major Vital Signs Temperature 98.3 degrees Fahrenheit 10/24/2024 Blood pressure diastolic 88 mm Hg 10/24/2024 Height 60 in 10/24/2024 Blood pressure systolic 152 mm Hg 10/24/2024 Weight 165 lbs 10/24/2024 BMI 32.22 kg/m2 10/24/2024 Encounters Encounter Location Date Provider Diagnosis [address] [place] [address] 10/24/2024 Jennifer Acosta Encounter for screening mammogram [...] Name:Jennifer Alexander jennifer, 10/30/2025 02:40:00 PM, [address], [address], [place], [address], Insurance Providers Payer Name Payer Address Payer Phone Subscriber Number Group Number Insured Name Patient Relationship to Insured Coverage Start Date Coverage End Date [facility] [address] [place], [place] [id number] FRIDA JAMES Self - patient is the [...]
== END 2025-03-02 07:23 | disposition home or self-care (01) ==
LOC: HO.MAMMO 07:22
PROVIDERS: PCP Internal Medicine; Visit Provider Internal Medicine
DX: N64.89 Other specified disorders of breast (principal)
CPT/HCPCS: 76642; 77061; 77065

== ENCOUNTER → 2025-03-02 07:30 | Outpatient (BNV) | payer OTHER, SELFPAY | PROVIDERS: PCP Internal Medicine; Visit Provider Radiology Body Imaging | DX: R92.8 Other abnormal and inconclusive findings on diagnostic imaging of breast (principal) | CPT/HCPCS: 76642; 77061; 77065 ==

== ENCOUNTER 2025-03-30 09:37 | Outpatient (REF) | payer OTHER, SELFPAY ==
--- OUTSIDE RECORDS SUMMARY | 2024-07-07 10:40 | XMS_ITS ---
Author Organization [facility] Address [address] [place] [address] Care Team Providers Care Sweatband Maker Name Role Phone NIMISHA QUINONES, LINNEA Primary Care Provider Hayleyjacinto sonia Jennifer Acosta Unavailable [phone] REASON FOR VISIT Annual ORDER PLANNER Physical Encounters Encounter Location Date Provider Diagnosis [facility] [address] [facility] [address] [place] [address] 07/07/2024 Jennifer Acosta Plan Of Treatment Next Appt Details Provider Name:Jennifer rodriguez, 10/30/2025 02:40:00 PM, [address] [facility], [address], [place], [address], Progress Notes * HOANG JAMESSunitha:1960 ( 64 yo F)Acc No.[id number]:07/07/2024 PROGRESS NOTES Patient: FRIDA HOLGUIN Appointment Provider: Jane Acosta M.D. :1960 A ge:63 Y S ex:Female Date:07/07/2024 Address:[address] [place] [address] [address] [facility] [id number] Pcp:LINNEA BANSAL MD Subjective: * Chief Complaints: * 1 . Annual ORDER PLANNER Physical. * Medical History: Objective: * Vitals: Assessment: Plan: * Treatment: * Images: Billing Information: * Visit Code: * Procedure Codes: * Electronic signature of Thierno Acosta MD on 03/30/2025 at 11:21 AM EDT Sign off status: Pending * Appointment Provider: Jane Acosta M.D. Date: 1 Generated for Veronica garcia/Danelle/Namrata on: 0 03/30/2025 11:21 AM EDT
--- OUTSIDE RECORDS SUMMARY | 2025-03-30 11:20 | XMS_ITS | Clinical Summary ---
Author Organization [facility] Address [address] [place] [address] Care Team Providers Care Aircraft Refueler Name Role Phone Luz Torres MD Primary Care Provider [phone] Allergies Active Allergy Reactions Criticality Noted Date [...] Other, Reported on 08/30/2021 D3-50 1.25 MG (05299 UT) capsule TAKE 1 CAPSULE BY ONCE [...] age to complete this topic Care Teams Aircraft Refueler Relationship Specialty Start Date End Date Luz Torres MD [address] [place] [address] MARY CHOW [id number] PCP - General Internal Medicine 01/25/21
--- OUTSIDE RECORDS SUMMARY | 2025-03-30 11:21 | XMS_ITS | Patient Health Record ---
Author Organization [employer] [facility] Address [address] [place] [address] Care Team Providers Care Bowling Ball Engraver Name Role Phone LINNEA BANSAL MD Primary Care Provider Jennifer Moise Unavailable [phone] Allergies Allergen (clinical drug ingredient) Drug/Non Drug [...] Status Risk Notes Problem Postmenopausal atrophic vaginitis (41523176) Postmenopausal atrophic vaginitis (N95.2) Active confirmed Problem Screening for malignant neoplasm of breast (086512121) Encounter for screening mammogram for malignant neoplasm of breast (Z12.31) Active confirmed Problem Hypothyroidism (28852388) Unspecified hypothyroidism (244.9) Active confirmed Major Problem Gynecological examination normal (599594024616673) Routine gynecological examination (V72.31) Active confirmed Major Vital Signs Temperature 98.3 degrees Fahrenheit 10/24/2024 Blood pressure diastolic 88 mm Hg 10/24/2024 Height 60 in 10/24/2024 Blood pressure systolic 152 mm Hg 10/24/2024 Weight 165 lbs 10/24/2024 BMI 32.22 kg/m2 10/24/2024 Encounters Encounter Location Date Provider Diagnosis [address] [place] [address] 10/24/2024 Jennifer Acosta Encounter for screening mammogram [...] Name:Jennifer Alexander jennifer, 10/30/2025 02:40:00 PM, [address], [address], [place], [address], Insurance Providers Payer Name Payer Address Payer Phone Subscriber Number Group Number Insured Name Patient Relationship to Insured Coverage Start Date Coverage End Date [facility] [address] [place], [place] [id number] FRIDA JAMES Self - patient is the [...]
[2025-03-30 13:25] LABS: Hemoglobin A1C 130.7609 umol/L; Total Hemoglobin (HGBA1C) 3407.2154 umol/L
[2025-03-30 13:42] LABS: Cholesterol 197 mg/dL (<200); HDL Cholesterol 40 mg/dL (>40); Triglycerides 200 mg/dL (<150)
[2025-03-30 14:11] LABS: Free T4 (Free Thyroxine) 1.06 ng/dL (0.71-1.85); Thyroid Stimulating Hormone 3.70 uIU/mL (0.32-4.0)
== END 2025-03-30 09:38 | disposition home or self-care (01) ==
LOC: HO.HMGCLDS 09:37
PROVIDERS: PCP Internal Medicine; Visit Provider Internal Medicine
DX: R73.01 Impaired fasting glucose (principal); E78.5 Hyperlipidemia, unspecified; E03.9 Hypothyroidism, unspecified; E55.9 Vitamin D deficiency, unspecified; E66.9 Obesity, unspecified; Z78.0 Asymptomatic menopausal state
CPT/HCPCS: 36415; 80061; 82306; 82947; 83036; 84439; 84443

== ENCOUNTER 2025-04-01 08:37 | Outpatient (AMB) | payer OTHER, SELFPAY ==
--- OUTSIDE RECORDS SUMMARY | 2024-07-07 10:40 | XMS_ITS ---
Author Organization [facility] Address [address] [place] [address] Care Team Providers Care Junior Business Analyst Name Role Phone NIMISHA QUINONES, LINNEA Primary Care Provider Hayleyjacinto sonia Jennifer Acosta Unavailable [phone] REASON FOR VISIT Annual CABLE REPAIRER Physical Encounters Encounter Location Date Provider Diagnosis [facility] [address] [place] [address] 07/07/2024 Jennifer Acosta Plan Of Treatment Next Appt Details Provider Name:Jennifer rodriguez, 10/30/2025 02:40:00 PM, [address] [facility], [address], [place], [address], Progress Notes * HOANG JAMESSunitha:1960 ( 64 yo F)Acc No.[id number]:07/07/2024 PROGRESS NOTES Patient: FRIDA HOLGUIN Appointment Provider: Jane Acosta M.D. :1960 A ge:63 Y S ex:Female Date:07/07/2024 Address:[address] [place] [address] [address] [id number] Pcp:LINNEA BANSAL MD Subjective: * Chief Complaints: * 1 . Annual CABLE REPAIRER Physical. * Medical History: Objective: * Vitals: Assessment: Plan: * Treatment: * Images: Billing Information: * Visit Code: * Procedure Codes: * Electronic signature of Thierno Acosta MD on 04/01/2025 at 09:41 AM EDT Sign off status: Pending * Appointment Provider: Jane Acosta M.D. Date: 1 Generated for Veronica garcia/Danelle/Namrata on: 0 04/01/2025 09:41 AM EDT
--- NOTE | 2025-04-01 08:43 | A.OFFPC_ITS ---
Vital Signs 04/01/25 08:49 04/01/25 09:36 Height 5 ft 1 in Weight 166 lb BMI 31.4 BP 138/90 H 130/90 H Blood Pressure Location Lt brachial Lt brachial Position Sitting Sitting Respiration 16 Pulse 65 Pulse Source Pulse Oximeter Temp 97.8 F Temp Source Oral Pulse Oximetry (%) 97 Oxygen Delivery Method Room Air Intake Visit Reasons: PE Intake Note: Pt is here today for her PE: Last mammogram 03/02/25, papsmear 06/16/20, colonoscopy 11/30/23 Allergies acetaminophen (From Percocet) Allergy (Verified 04/01/25 09:05) Rash meperidine (From Demerol) Allergy (Verified 04/01/25 09:05) Rash oxycodone (From Percocet) Allergy (Verified 04/01/25 09:05) Rash Penicillins Allergy (Verified 04/01/25 09:05) Anaphylaxis ibuprofen Adverse Reaction (Verified 04/01/25 09:05) face swollen Medication List - Last Reconciled 04/01/25 by Luz Torres MD albuterol sulfate 90 mcg/actuation 2 inhalations inhalation Q6H PRN cholecalciferol (vitamin D3) 25 mcg PO DAILY estradiol (Yuvafem) mcg vaginal fluticasone propionate 50 mcg/actuation 1 spray intranasal DAILY levothyroxine 50 mcg PO DAILY Tobacco use date assessed: 04/01/25 Dental Screening Dental Screen Date: 04/01/25 Did you have a dental visit in the last 12 months?: Yes Did you have a dental problem in the last 6 months where you did not have access to dental care?: No Was dental information given to patient?: Patient has dentist HPI PE HPI Details 64-year-old lady here today for her phys ical exam. She up-to-date with her breast cancer screening, mammogram done a month ago with benign findings. Last cervical cancer screening was done in 2019, sees Dr. Acosta. Up-to-date with her colon cancer screening, with a colonoscopy done in 2023 by with removal of a tubular adenoma polyp, repeat colonoscopy due again in 2028. The patient has a history of hypertriglyceridemia, with recent lab results indicating elevated triglyceride levels. Her total cholesterol is less than 200 mg/dL, with LDL cholesterol at 117 mg/dL and HDL cholesterol at 40 mg/dL. Noted to have elevated blood pressure reading of 138/90 mmHg during the visit. She does not take any antihypertensive medication currently. States however that she just came back from running 5 miles and lifting weights for exercise. Denies any chest pain, headache, no lightheadedness, no shortness of breath, no palpitations Does not want to get any vaccines [facility] Medical History (Updated 04/01/25 @ 09:32 by Luz Torres MD) Postmenopausal syndrome Impaired fasting glucose Dyslipidemia Tubular adenoma of colon COVID-19 vaccine series declined Tear of medial meniscus of left knee Encounter for general adult medical examination with abnormal findings Menopause Vitamin D deficiency Obesity (BMI 30.0-34.9) Allergic rhinitis Mild intermittent allergic asthma without complication Osteoarthritis, knee Acquired hypothyroidism Surgical History Hx of colonoscopy History of surgical removal of meniscus of knee H/O abdominoplasty H/O bilateral breast implants Family History Father Diabetes Hypertension Mother Diabetes Hypertension Mental health disorder Brother Diabetes Brother Diabetes Brother Diabetes Sister Diabetes Social History Housing: House Alcohol intake: never Patient Tobacco Use Status: Never used Tobacco e-Cigarette/Vaping Use: Never Used service: No Current occupational status: unemployed Cognitive needs: No Hearing needs: No Vision needs: Yes Questionnaire PHQ-9 Over the last 2 weeks, how often have you been bothered by any of the following problems? 1. Little interest or pleasure in doing things: not at all 2. Feeling down, depressed, or hopeless: not at all 3. Trouble falling or staying asleep, or sleeping too much: not at all 4. Feeling tired or having little energy: not at all 5. Poor appetite or overeating: not at all 6. Feeling bad about yourself - or that you are a failure or have let yourself or your family down: not at all 7. Trouble concentrating on things, such as reading the newspaper or watching television: not at all 8. Moving or speaking so slowly that other people could have noticed. Or the opposite - being so fidgety or restless that you have been moving around a lot more than usual: not at all 9. Thoughts that you would be better off or of hurting yourself in some way: not at all Total score: 0 Depression Screening Interpretation: Negative Depression Screening Done: Yes 87538 - PHQ-9 Billing: Yes Source: Developed by Drs. Anish Paz, Rylee Marx, Siddhartha Ramos and colleagues, with an educational jayleen from [employer]. Thrive Questionnaire Date Thrive assessed: 09/18/24 I am a: Patient What is your living situation today?: I have a steady place to live Within the past 12 months, did the food you bought not last and you didn't have the money to get more?: I choose not to answer this question Within the past 12 months, did you worry whether your food would run out before you got money to buy more?: Never true Do you have trouble paying for medicines?: No Do you have trouble getting transportation to medical appointments?: No Do you have trouble paying your heating and electricity bill?: No Do you have trouble taking care of your child, family member or friend?: No Do you have trouble with day-to-day activities such as bathing, preparing meals, shopping, managing finances, etc.?: No Are you currently unemployed and looking for a job?: I choose not to answer this question Are you interested in more education?: No Please select the resources that you would like help with: None Currently or been in a relationship where the following occur: No concerns reported THRIVE Score: 0 AUDIT C Alcohol Use Questionnaire (AUDIT-C) 1. How often do you have a drink containing alcohol?: Never Total Score: 0 JULIO-7 AMB Questionnaire JULIO-7 Date JULIO - 7 assessed: 09/18/24 Feeling nervous, anxious, or on edge: 0 = Not at all Not being able to stop or control worryin = Not at all Worrying too much about different things: 0 = Not at all Trouble relaxin = Not at all Being so restless that it is hard to sit still: 0 = Not at all Becoming easily annoyed or irritable: 0 = Not at all Feeling afraid as if something awful might happen: 0 = Not at all Total JULIO-7 score (0-4 normal; 5-9 mild; 10-14 moderate; 15-21 severe): 0 Source: Developed by Drs. Anish Paz, Rylee Marx, Siddhartha Ramos and colleagues, with an educational jayleen from [employer]. JULIO-7 Assessment Billing JULIO-7 Assessment Tool: JULIO-7 Assessment 98138 Review of Systems Const Reports no additional complaints Eyes Details: Sees [facility] ENT Details: Gets regular dental prophylaxis every 6 months Card Denies chest pain, Denies rapid heart rate, Denies irregular heart rhythm, Denies lightheadedness and Denies dyspnea Resp Denies cough and Denies dyspnea GI Reports no additional complaints Details: Followed by Dr. Acosta for her routine Pap and pelvic exam, cervical cancer screening and pelvic exam done 2022, requested copy of results of Pap smear from Dr. Acosta's office Musc Reports no additional complaints Skin/Breast Denies breast pain, Denies breast mass and Denies rash Neuro Reports no additional complaints Psych Reports no additional complaints Endo Reports no additional complaints Casey/Lymph Reports no additional complaints Aller/Immun Reports seasonal rhinorrhea Physical exam (Primary Care) Vital Signs: Last Vital Signs Temp 97.8 F 04/01/25 08:49 Pulse 65 04/01/25 08:49 Resp 16 04/01/25 08:49 BP 138/90 H 04/01/25 08:49 Pulse Ox 97 04/01/25 08:49 Oxygen Delivery Method Room Air 04/01/25 08:49 BMI result Body Mass Index 31.4 BMI Assessment/Plan discussion: High BMI High, discussed plan: lifestyle, weight reduction, dietary and physical activity Tobacco/Smoking Status: Tobacco use Status Tobacco use date assessed 04/01/25 04/01/25 08:53 Patient Tobacco Use Status Never used Tobacco 04/01/25 08:44 e-Cigarette/Vaping Use Never Used 04/01/25 08:44 PHQ-9: PHQ-9 Score PHQ-9: Total score 0 04/01/25 09:35 Depression Screening Interpretation: Negative Thrive Assessment: Date of Thrive Assessment Date Thrive assessed 09/18/24 04/01/25 08:44 Currently or been in a relationship where the following occur: No concerns reported Const General: no acute distress Nutritional Appearance: obese Orientation/consciousness: patient oriented x3 HENMT General nose exam: Normal external nose present Face and sinus: Yes face symmetric Mouth: Normal oral and palatal mucosa present and moist mucous membranes Eyes General: appearance normal, both eyes and all related structures Neck Neck: Yes full ROM, Yes no lymphadenopathy and Yes supple Thyroid: Thyroid normal Chest Breast/axilla palpation: normal palpation of the breasts (Bilateral breast implant) Resp Auscultation: clear to auscultation bilaterally Cardio Other: S1-S2 Present regular rate and rhythm GI Other: Normal bowel sounds, soft, nontender, no mass palpated General: Yes no CVA tenderness and Yes deferred (Sees Dr. Acosta) Back/Spine/Pelvis Back: no CVA tenderness and No back tenderness Skin General skin exam: no rashes or lesions noted Neuro General: patient oriented x3, gait normal, tone normal, moves all extremities, Normal light touch and pain sensation, no focal motor deficits and CN's II-XI in tact bilaterally Extrem General: Yes full ROM, Yes no joint enlargement, Yes no pedal edema, Yes no calf tenderness and Yes normal gait Psych Appearance: grossly normal and well kempt Mental Status: mental status grossly normal Speech and movement: Normal speech and movement present Affect: normal affect Results Reviewed Results Reviewed: Name: Dedra Larson Age/Sex: 64/F : 1960 Unit#: [id number] Attend Dr: Luz Torres MD Re03/30/25 Status: DEP REF Location: [facility] Disch: SPEC : [id number] MILO: 03/30/25 STATUS: COMP REQ : [id number] RECD: 03/30/[address]: Luz Torres MD COMP: 03/30/25 ENTERED: 03/30/[address]: ORDERED: Glu Fasting, Lipid Panel, Vitamin D 25-OH, Free T4, TSH Test Result Flag Reference FBS 92 60-99 mg/dL Triglyceride 200 H <150 mg/dL Desirable Triglyceride: less than 150 mg/dL Borderline High Triglyceride 150-199 mg/dL High Triglyceride: 200-499 mg/dL Very High Triglyceride: greater than or equal to 5OO mg/dL Cholesterol 197 <200 mg/dL Desirable Cholesterol: less than 200 mg/dL Borderline High Cholesterol: 200-239 mg/dL High Cholesterol: greater than 239 mg/dL LDL Calculated 117 H <100 mg/dL Desirable LDL: less than 100 mg/dL Near Optimal/Above Optimal LDL: 110-129 mg/dL Borderline High LDL: 130-159 mg/dL High LDL: 160-189 mg/dL Very High LDL: greater than or equal to 190 mg/dL HDL 40 L >40 mg/dL Desirable HDL: greater than 40 mg/dL Note: This HDL assay may give artificially low results in patients with liver disease. Vitamin D 25-OH 97.5 >30 ng/mL Health Based Reference Values* < 20 ng/mL Deficient 20-30 ng/mL Insufficient > 30 ng/mL Sufficient *Jeanne HATCH. N Engl J Med. 2007;357:266-280 There is no well-established upper level of normal vitamin D levels. Some laboratories use 50 ng/mL as an upper limit of normal. However, toxicity is patient-dependent and may occur at any level. Careful correlation with the patient's presentation is necessary and, if there is concern for vitamin D toxicity, treatment should be considered irrespective of the serum level. Care must be taken in interpreting Vitamin D results from different laboratories and methodologies. Published data demonstrated that results from patients undergoing hemodialysis may show a negative bias when tested with various automated 25-OH vitamin D assays when compared to LC-MS/MS. When testing samples from patients whose predominant form of Vitamin D is Vitamin D2, such as patients receiving Vitamin D2 supplementation, results that are subtherapeutic should be confirmed with another method such as LC-MS/MS. Free T4 1.06 0.71-1.85 ng/dL TSH 3rd Gen. 3.70 0.32-4.0 uIU/mL Note: A sustained TSH level above 2.5 uIU/mL may warrant further investigation. Laboratory Tests 03/30/25 09:50 Estimat Average Glucose 117 Hemoglobin A1c % 5.7 Coding Level of Care Code Est Pt Prev Care 40-64y(46052) Diagnoses Encounter for general adult medical examination with abnormal findings Z00.01 Dyslipidemia E78.5 Impaired fasting glucose R73.01 Acquired hypothyroidism E03.9 Obesity (BMI 30.0-34.9) E66.9 Postmenopausal syndrome N95.1 Mild intermittent allergic asthma without complication J45.20 Additional Codes JULIO-7 Assessment Billing - JULIO-7 Assessment Tool: JULIO-7 Assessment 27481 ([id number]) PHQ-9 - 04553 - PHQ-9 Billing: Yes ([id number]) Assessment & Plan Assessment & Plan (1) Encounter for general adult medical examination with abnormal findings: Code(s): Z00.01 - Encounter for general adult medical examination with abnormal findings Category: Medical Plan: Discuss recent lab results with patient.. Recommended dental visit every 6 months and regular eye exams, at least every 2 years. Take adequate calcium in diet and vitamin-D 3 at 2000 IU per cap once a day, i continue weight-bearing exercises to help maintain good muscle tone and weight control. Will order a bone density scan next year together with her mammogram Instructed to do self- breast exam, and up-to-date with her yearly mammogram. Patient does not want to get any vaccinations but did have her Tdap . She is up-to-date with her colonoscopy screening, with removal of a tubular adenoma polyp by Dr. Meche márquez, repeat colonoscopy again in 2028 (2) Dyslipidemia: Code(s): E78.5 - Hyperlipidemia, unspecified Category: Medical Plan: Reviewed recent fasting lipid profile with patient with elevated triglycerides and higher LDL cholesterol as compared to last check. Continue adherence to low-cholesterol diet and regular exercise, at least 30 minutes 3 to 4 times a week. Discussed with patient foods to avoid to prevent high triglycerides. Advised patient to make healthy food choices, eat more fruits, vegetables, whole grains, wild caught fish and low-fat dairy. Limit amount of meat and fried or fatty food products, as well as processed foods and fast foods. Follow-up scheduled with repeat fasting lipid panel in 6 months. (3) Impaired fasting glucose: Code(s): R73.01 - Impaired fasting glucose Category: Medical Plan: Your previous fasting blood sugars were elevated above 100 mg/dL. Latest hemoglobin A1c now is at 5.7% and fasting glucose is at 92 mg/dL. Impaired glucose metabolism increases the risk for developing diabetes mellitus type 2, as well as heart attack and stroke later on. Lifestyle changes that promotes weight loss, healthy eating habits, and regular exercise are important, and can prevent the progression to diabetes (4) Acquired hypothyroidism: Code(s): E03.9 - Hypothyroidism, unspecified Category: Medical Plan: Thyroid levels are within normal limits. Continue levothyroxine 50 mcg daily (5) Obesity (BMI 30.0-34.9): Code(s): E66.9 - Obesity, unspecified Category: Medical Plan: Continue with moderate intensity exercise, patient states that she runs 5 miles a day and lifts weights.. Advised to try. Mediterranean diet is a healthy diet that helps, limit food high in fat, sugar, and calories. Eat slowly, pay attention to portion sizes, plan your meals ahead of time. (6) Postmenopausal syndrome: Comment: Prescribed Yuvafem intravaginal tablets by Dr. Acosta Code(s): N95.1 - Menopausal and female climacteric states Category: Medical Plan: Followed by Dr. Acosta, currently on you intravaginal Yuvafem tablet. Up-to-date with her cervical cancer screening, done earlier this year copy of results of Pap smear requested (7) Mild intermittent allergic asthma without complication: Code(s): J45.20 - Mild intermittent asthma, uncomplicated Category: Medical Plan: Rarely needing to use her albuterol inhaler, patient does not want to get any vaccine for flu or COVID or pneumonia Orders: Orders Free T4 (Free Thyroxine) 10/07/25 E03.9 - Hypothyroidism, unspecified, E66.9 - Obesity, unspecified, E78.5 - Hyperlipidemia, unspecified, R73.01 - Impaired fasting glucose Basic Metabolic Panel Fasting 10/07/25 E78.5 - Hyperlipidemia, unspecified, R73.01 - Impaired fasting glucose Lipid Panel 10/07/25 E78.5 - Hyperlipidemia, unspecified, R73.01 - Impaired fasting glucose Thyroid Stimulating Hormone 10/07/25 E03.9 - Hypothyroidism, unspecified, E66.9 - Obesity, unspecified, E78.5 - Hyperlipidemia, unspecified, R73.01 - Impaired fasting glucose
[2025-04-01 08:49] VITALS: BP 138/90; PULSE 65; RESP 16; TEMP 36.6; O2SAT 97; BMI 31.4
[2025-04-01 09:36] VITALS: BP 130/90
--- OUTSIDE RECORDS SUMMARY | 2025-04-01 09:41 | XMS_ITS | Patient Health Record ---
Author Organization [employer] [facility] Address [address] [place] [address] Care Team Providers Care Inside Sales Lead Name Role Phone LINNEA BANSAL MD Primary Care Provider Jennifer Moise Unavailable [phone] Allergies Allergen (clinical drug ingredient) Drug/Non Drug [...] Status Risk Notes Problem Postmenopausal atrophic vaginitis (25752071) Postmenopausal atrophic vaginitis (N95.2) Active confirmed Problem Screening for malignant neoplasm of breast (616904940) Encounter for screening mammogram for malignant neoplasm of breast (Z12.31) Active confirmed Problem Hypothyroidism (98758425) Unspecified hypothyroidism (244.9) Active confirmed Major Problem Gynecological examination normal ([id number]) Routine gynecological examination (V72.31) Active confirmed Major Vital Signs Temperature 98.3 degrees Fahrenheit 10/24/2024 Blood pressure diastolic 88 mm Hg 10/24/2024 Height 60 in 10/24/2024 Blood pressure systolic 152 mm Hg 10/24/2024 Weight 165 lbs 10/24/2024 BMI 32.22 kg/m2 10/24/2024 Encounters Encounter Location Date Provider Diagnosis [address] [place] [address] 10/24/2024 Jennifer Acosta Encounter for screening mammogram [...] Name:Jennifer Alexander jennifer, 10/30/2025 02:40:00 PM, [address], [address], [place], [address], Insurance Providers Payer Name Payer Address Payer Phone Subscriber Number Group Number Insured Name Patient Relationship to Insured Coverage Start Date Coverage End Date [facility] [address] [place], [place] [id number] FRIDA JAMES Self - patient is the [...]
--- OUTSIDE RECORDS SUMMARY | 2025-04-01 09:41 | XMS_ITS | Clinical Summary ---
Author Organization [facility] Address [address] [place] [address] Care Team Providers Care Powertrain Design Engineer Name Role Phone Luz Torres MD Primary Care Provider [phone] Allergies Active Allergy Reactions Criticality Noted Date [...] Other, Reported on 08/30/2021 D3-50 1.25 MG (56569 UT) capsule TAKE 1 CAPSULE BY ONCE [...] age to complete this topic Care Teams Powertrain Design Engineer Relationship Specialty Start Date End Date Luz Torres MD [address] [place] [address] MARY CHOW [id number] PCP - General Internal Medicine 01/25/21
== END 2025-04-01 09:27 | disposition home or self-care (01) ==
LOC: HO.HMCC 08:38
PROVIDERS: PCP Internal Medicine; Visit Provider Internal Medicine
DX: Z00.01 Encounter for general adult medical examination with abnormal findings (principal); E78.5 Hyperlipidemia, unspecified; E66.9 Obesity, unspecified; Z68.31 Body mass index [BMI] 31.0-31.9, adult; R73.01 Impaired fasting glucose; E03.9 Hypothyroidism, unspecified; N95.1 Menopausal and female climacteric states; J45.20 Mild intermittent asthma, uncomplicated

== ENCOUNTER → 2025-04-01 08:37 | Outpatient (BNVA) | payer OTHER, SELFPAY | PROVIDERS: PCP Internal Medicine; Visit Provider Internal Medicine | DX: Z00.01 Encounter for general adult medical examination with abnormal findings (principal); E78.5 Hyperlipidemia, unspecified; R73.01 Impaired fasting glucose; E03.9 Hypothyroidism, unspecified; E66.9 Obesity, unspecified; N95.1 Menopausal and female climacteric states; J45.20 Mild intermittent asthma, uncomplicated; Z79.899 Other long term (current) drug therapy; Z13.31 Encounter for screening for depression | CPT/HCPCS: 96127 ==